=== PATIENT | female | born 1935 | race Caucasian/White ===

== ENCOUNTER 2017-07-25 05:16 | Inpatient (IN) | payer MEDICARE, MEDICAID ==
[2017-07-25] VITALS (24 sets, daily range): BP systolic 78–124; BP diastolic 35–62
[~2017-07-25] VITALS: Ht 157.5 cm; Wt 49.9 kg
--- NOTE | 2017-07-25 05:25 | NUR ---
CALLED INTO ER, ARRIVED TO ROOM 1A TO FIND PT IN RESPIRATORY DISTRESS. PT PLACED ON BIPAP AT THIS TIME PER MD ORDER WITH THE FOLLOWING SETTINGS GIVEN BIPAP 12/6, RATE 12, 100% FIO2. ABG WAS DONE WHILE ON BIPAP PER MD ORDER. WILL CONTINUE TO MONITOR.
--- NOTE | 2017-07-25 05:25 | NUR ---
Pt is received nonverbal as darci in FROM [facility] with severe shortness of breath with 02 sat on field 78%, 83% on NRB. Her care continue.
[2017-07-25] MEDS ORDERED: IV NORMAL SALINE 1000 ML BAG IV ONE ×2 (05:30→06:15)
--- NOTE | 2017-07-25 05:30 | NUR ---
Pt is place on the BiPAP as she is a full code with 02 [facility] [phone]
[2017-07-25 05:37] LABS: ABG BASE EXCESS -0.9 mmol/L; ABG HCO3 23.2 mmol/L; ABG PCO2 36.9 mmHg (35.0-45.0); ABG PH 7.416 (7.350-7.450); ABG SITE RIGHT RADIAL; ABG TOTAL HEMOGLOBIN 16.2 G/dL (12.0-16.0); COHb 1.1 % (0.5-1.5); MetHb 0.4 % (0.0-1.5)
--- NOTE | 2017-07-25 05:45 | NUR ---
Pt is started on Sepsis workup as Antibiotic therapy is started after Blood Cultures, Urine and lab work done as ordeered. Her care contiinue.
[2017-07-25] MEDS ORDERED: TRAM50TA2 PO (05:55)
[2017-07-25] MEDS ORDERED: ATOR40TA PO (05:55)
[2017-07-25] MEDS ORDERED: AMLO5TAB2 PO (05:55)
[2017-07-25] MEDS ORDERED: ATOR10TA PO (05:55)
[2017-07-25] MEDS ORDERED: ASPI81TA31 PO (05:55)
[2017-07-25] MEDS ORDERED: FAMO-132 PO (05:55)
--- NOTE | 2017-07-25 06:00 | NUR ---
Pt remain nonverbal with BiPAP therapy in progress as mosqueda cath in place as an open area to coccyx and left heels. Her care continue.
[2017-07-25 06:02] LABS: BASOPHILS # (AUTO) 0.1 K/uL (0.0-8.0); BASOPHILS % (AUTO) 0.5 % (0.0-2.0); HEMATOCRIT 50.6 % (37-47); HEMOGLOBIN 15.9 G/DL (12.0-16.0); LYMPHOCYTES # (AUTO) 0.9 K/UL (0.8-4.8); LYMPHOCYTES % (AUTO) 5.8 % (20.5-51.5); MEAN CORPUSCULAR HEMOGLOBIN 27.9 UUG (27.0-31.0); MEAN CORPUSCULAR HGB CONC 31 g/dL (32.0-37.0); MEAN CORPUSCULAR VOLUME 88.9 FL (81.0-99.0); MONOCYTES # (AUTO) 0.4 K/UL (0.1-1.30); MONOCYTES % (AUTO) 2.6 % (0.0-11.0); NEUTROPHILS # (AUTO) 13.4 K/UL (1.8-8.9); NEUTROPHILS % (AUTO) 91.1 % (38.5-71.5); PLATELET COUNT (AUTO) 119 K/UL (150-450); WHITE BLOOD COUNT (AUTO) 14.8 K/UL (4.0-11.2)
[2017-07-25] MEDS ORDERED: LEVOFLOXACIN 750 MG/D5W 150 ML PIGGYBACK IV ONE (06:15)
[2017-07-25] MEDS ORDERED: PIPERACILLIN SODIUM/TAZOBACTAM 3.375 G in IV DEXTROSE 5% 50 ML IV ONE (06:15)
[2017-07-25] MEDS ORDERED: VANCOMYCIN IV 1,000 MG in IV DEXTROSE 5% 250 ML IV ONE (06:15)
[2017-07-25 06:24] LABS: *BILIRUBIN,URIN NEGATIVE (NEGATIVE); *BLOOD, URINE 2+ (NEGATIVE); *KETONES,URINE NEGATIVE (NEGATIVE); *PROTEIN,URINE 2+ (NEGATIVE); LEUKOCYTE ESTERASE ,URINE 1+ (NEGATIVE); NITRITE, URINE NEGATIVE (NEGATIVE); PH,URINE 7.5 (5.0-8.0); UGLUCOSE NEGATIVE (NEGATIVE)
[2017-07-25] MEDS ORDERED: ACETAMINOPHEN 650 MG SUPP.RECT RC ONE ×2 (06:27→06:30)
--- NOTE | 2017-07-25 06:30 | NUR ---
Pt remain full code as BiPAP therapy in progress as IVF and Antibiotic therapy in progress. Her care continue.
[2017-07-25 06:37] LABS: *CLARITY,URINE CLOUDY (CLEAR)
--- NOTE | 2017-07-25 06:37 | NUR ---
TWO SETS OF BLOOD CULTURE CONFIRMED BY LABORATORY.
[2017-07-25 06:38] LABS: *COLOR,URINE YELLOW (YELLOW)
[2017-07-25 06:40] LABS: BACTERIA,URINE MANY /HPF (NONE SEEN); SQUAMOUS EPITHELIAL CELL,UR MANY /HPF (NONE SEEN)
[2017-07-25] MEDS ORDERED: PIPERACILLIN SODIUM/TAZO 3.375 GM VIAL ONE (06:40)
[2017-07-25] MEDS ORDERED: IOHEXOL 350 100 ML INFUS..BTL ONE (06:43)
[2017-07-25] MEDS ORDERED: IV NORMAL SALINE 250 ML IV ONE (06:43)
--- NOTE | 2017-07-25 07:05 | NUR ---
Pt remain nonverbal with BiPAP therapy in progress as report is given to the AM nurse. Pt care continue.
[2017-07-25] MEDS ORDERED: LEVOFLOXACIN 750MG/D5W 150 ML IV ONE (07:06)
--- NOTE | 2017-07-25 07:34 | NUR ---
Pt intubated by with myself, Marilee RN, Renetta RN, Roscoe PITCH WORKER and Dru CHAMORROP at bedside.
[2017-07-25] MEDS ORDERED: PROPOFOL 100 ML IV ONE (07:35)
[2017-07-25] MEDS ORDERED: SUCCINYLCHOLINE CHLORIDE 200 MG/10 ML VIAL IV ONE ×2 (07:45→14:53)
[2017-07-25] MEDS ORDERED: ETOMIDATE 20 MG/10 ML VIAL IV ONE ×2 (07:45→14:53)
--- NOTE | 2017-07-25 07:45 | NUR ---
Succinylcholine 100mg remaining in vial wasted per protocol and witnessed by Renetta ARMANDO.
--- NOTE | 2017-07-25 08:15 | NUR ---
Pt trans to CCU with ACLS guidelines in place by myself, primary nurse Marilee and Dru TURNER.
--- NOTE | 2017-07-25 08:30 | NUR ---
PT INTUBATED WITH ET TUBE SIZE 7.0 TAPED AT APPROXIMATELY 22 CM AT LIP. PLACED ON INITIAL SETTINGS OF AC 14 ,VT 450 PEEP [address] FIO2 50%. DR. MICHELE ORDERED AC 20 VT 500 AND FIO2 100% WITH NO PEEP. ET TUBE WAS PLACED TO 20CM AT LIP ORDERED BY DR. MICHELE. TRANSPORTED TO CCU ROOM 1 WITHOUT INCIDENT.
[2017-07-25 08:35] LABS: ALANINE AMINOTRANSFERASE 38 U/L (14-59); ALKALINE PHOSPHATASE 62 U/L (50-136); ASPARTATE AMINOTRANSFERASE 27 U/L (15-37); BILIRUBIN,DIRECT 0.2 mg/dL (0.0-0.2); BILIRUBIN,TOTAL 0.6 mg/dL (0.2-1.0); CARBON DIOXIDE 23 mmol/L (21-32); CREATININE 1.5 mg/dL (0.6-1.3); GLUCOSE 276 mg/dL (74-106); POTASSIUM 3.9 mmol/L (3.5-5.1); UREA NITROGEN, BLOOD 57 mg/dL (7-18)
[2017-07-25 08:40] LABS: CHLORIDE 141 mmol/L (98-107)
[2017-07-25 09:00] LABS: ABG BASE EXCESS -3.1 mmol/L; ABG HCO3 20.1 mmol/L; ABG PCO2 30.9 mmHg (35.0-45.0); ABG PH 7.432 (7.350-7.450); ABG SITE RIGHT BRACHIAL; COHb 0.9 % (0.5-1.5); MetHb 0.4 % (0.0-1.5); O2Hb 96.4 % (94.0-97.0); VENT MODE VENT - A/C; VT, ABG 500 mL
--- NOTE | 2017-07-25 09:00 | NUR ---
RECEIVED PT ON CONTINUOUS VENT AC 20 VT 500 FIO2 100% . ETT 7.0 SECURED AT 20 CM LIP LINE VIA ANCHOR FAST. AMBU BAG AT BEDSIDE.BS EQUAL BILAT. SUCTION SMALL AMOUNT THICK WHITE /BLOODY SECRETIONS. ABG DRAWN AND RESULTS GIVEN TO RN. VENT CHECKED, ALARMS WORKING WELL AND AUDIBLE. NO DISTRESS NOTED AT THIS TIME. WILL CONTINUE TO MONITOR.
[2017-07-25 09:01] LABS: THYROID STIMULATING HORMONE 1.071 mIU/mL (0.358-3.740)
[2017-07-25] MEDS: PROPOFOL 100 ML IV PRN (09:07)
[2017-07-25] MEDS ORDERED: VANCOMYCIN IV 1 G in PREMIXED 0 EACH IV ONE (11:00)
[2017-07-25] MEDS ORDERED: ASPIRIN 81 MG TAB.CHEW GT SCH (12:45)
--- NOTE | 2017-07-25 13:23 | NUR ---
Dr. Goins pulmonary services in the unit to examine patient; full report given ventilator mode changes received and implemented by RT Arreaga who is present in the unit. changes as follow: A/C 20, TV400, Peep 5. and FIO2 to be titrated to keep Saturation above or equal to 94%.
--- NOTE | 2017-07-25 13:27 | NUR ---
At this time also picc line Emergency consent signed by Dr. Goins and Dr. Hastings. PICC line services called and informed of the need for PICC.
[2017-07-25] MEDS ORDERED: FAMOTIDINE. 20 MG/2 ML VIAL IV SCH (13:30)
[2017-07-25] MEDS ORDERED: HEPARIN SODIUM,PORCINE 10,000 UNITS/10 ML VIAL INJ SCH (13:30)
--- NOTE | 2017-07-25 13:51 | NUR ---
Clinical Pharmacy Note: Vancomycin Pharmacy to Dose Subjective; To start vanco in this 82 y/o male for sepsis (waiting for MD note). Objective: height: 62'' weight: 100 lb BUN 57 Scr 1.5 wbc 14.8 temp 100 Assessment/Plan Due to advanced age & elevated srcr, will start dosing by fall off level . Will give a 1st dose of vanco 1000mg IVPB x1 today at 1030. Pharmacist shall check srcr in am & decide when to order next random level for further dosing. Will continue to monitor.
--- NOTE | 2017-07-25 13:56 | NUR ---
Echocardiogram in progress.
--- NOTE | 2017-07-25 14:00 | NUR ---
PICC line in progress.
--- NOTE | 2017-07-25 14:10 | NUR ---
Dr. Gibson notified of pt's sinus tachycardia in the mid-120's and higher 120's.
--- NOTE | 2017-07-25 14:14 | NUR ---
WOUND CARE CONSULT: PT PRESENTS WITH STAGE 3 ULCERS TO SACRUM AND RT HEEL, PRESENT ON ADMISSION. RECOMMENDATIONS MADE FOR SKIN PROTECTION AND WOUND CARE. DISCUSSED WITH NURSING STAFF. PT ON FIRST STEP MATTRESS. ALL SKIN PROTECTION MEASURES IN PLACE. WILL SEE PRN. RECOMMEND SURGICAL CONSULT. MD IN AGREEMENT WITH PLAN OF CARE. Addendum: 07/25/17 at 1418 by FLORA BENAVIDES RN Amended: Links added.
--- NOTE | 2017-07-25 14:26 | NUR ---
Picc line placed in RUE 3 lumen.
--- NOTE | 2017-07-25 14:59 | NUR ---
NG tube placed at this time KUB for placement ordered as well. Addendum: 07/25/17 at 1502 by BOB ROSAS RN pharmacy called to rescheduled meds.
[2017-07-25 17:07] LABS: ABG BASE EXCESS -0.8 mmol/L; ABG HCO3 22.8 mmol/L; ABG PCO2 34.6 mmHg (35.0-45.0); ABG PH 7.437 (7.350-7.450); ABG PO2 93.3 mmHg (75.0-100.0); ABG SITE LEFT RADIAL; ABG TOTAL HEMOGLOBIN 13.5 G/dL (12.0-16.0); COHb 0.7 % (0.5-1.5); MetHb 0.6 % (0.0-1.5); O2Hb 96.1 % (94.0-97.0); VENT MODE VENT - A/C; VT, ABG 400 mL
--- NOTE | 2017-07-25 17:33 | NUR ---
2nd call to Radiology department for results of KUB. Awaiting results.
--- NOTE | 2017-07-25 17:45 | NUR ---
NG tube advanced 3 cm's as recommended.
[2017-07-25] MEDS: ASPIRIN 81 MG TAB.CHEW GT SCH (17:59)
[2017-07-25] MEDS: FAMOTIDINE. 20 MG/2 ML VIAL IV SCH (17:59)
[2017-07-25] MEDS ORDERED: MORPHINE SULFATE 2 MG/1 ML DISP.SYRIN IV PRN (18:30)
[2017-07-25 18:34] LABS: *CREATININE,URINE 110.8 mg/dL (30-125); *URINE TOTAL PROTEIN RANDOM 133.7 mg/dL (<150/24HR)
[2017-07-25 18:40] LABS: *BILIRUBIN,URIN NEGATIVE (NEGATIVE); *BLOOD, URINE NEGATIVE (NEGATIVE); *CLARITY,URINE CLOUDY (CLEAR); *COLOR,URINE YELLOW (YELLOW); *KETONES,URINE NEGATIVE (NEGATIVE); *UROBILINOGEN,URINE 0.2 E.U./dl (NORMAL); LEUKOCYTE ESTERASE ,URINE TRACE (NEGATIVE); NITRITE, URINE NEGATIVE (NEGATIVE); PH,URINE >=9.0 (5.0-8.0); UGLUCOSE NEGATIVE (NEGATIVE)
[2017-07-25 18:57] LABS: *PROTEIN,URINE 2+ (NEGATIVE)
[2017-07-25 19:01] LABS: BACTERIA,URINE MODERATE /HPF (NONE SEEN); SQUAMOUS EPITHELIAL CELL,UR MODERATE /HPF (NONE SEEN)
[2017-07-25 19:02] LABS: CALCIUM PHOSPHATE CRYSTALS,UR MANY /HPF (NONE SEEN); MUCUS,URINE MANY /LPF (0-FEW)
--- NOTE | 2017-07-25 19:30 | NUR ---
Report received. Patient orally intubated and to mechanical ventilator. O2 sat above 95% on current vent settings. Tachycardic. On continuous Diprivan drip at 15 mcg/kg/min. Grimaces to pain but doesn't follow any commands. Addendum: 07/26/17 at 0043 by ELISEO DAIGLE RN Amended: Links added.
--- NOTE | 2017-07-25 19:42 | NUR ---
Pt rec'd on Orellana settings AC 20, VT 5\400, FIO2-50% and PEEP+5. No resp. distress noted. 7.0 ETT is patent and secure at approx. 20 cm now at the left side of mouth. BVM is at bedside. Pt to be monitored throughout the shift and PRN SX. Orellana alarm parameters have been checked and remain audiblle. Oral care done. Addendum: 07/25/17 at 1950 by ARMANDO WINN RT Clarification- VT is 400.
--- NOTE | 2017-07-25 19:45 | NUR ---
Dr. Gibson notified of patient's VS and abnormal labs. Orders received. Addendum: 07/26/17 at 0045 by ELISEO DAIGLE RN Amended: Links added.
[2017-07-25] MEDS: PIPERACILLIN/TAZOBACTAM/D5W 2.25 G in PREMIXED 1 EACH IV SCH (20:03)
[2017-07-25] MEDS: IV D5W 1000ML 1,000 ML IV PRN (20:46)
[2017-07-25] MEDS: Z GUARD REMEDY PASTE 57 GM TUBE TOP SCH (20:46)
[2017-07-25] MEDS: HEPARIN SODIUM,PORCINE 5,000 UNITS/ML VIAL SQ SCH (20:48)
[2017-07-25] MEDS ORDERED: PIPERACILLIN/TAZOBACTAM/D5W 3.375 G in PREMIXED 1 EACH IV SCH (22:00)
[2017-07-25] MEDS: PHENYLEPHRINE IV 80 MG in IV DEXTROSE 5% 250 ML IV PRN (22:24)
--- NOTE | 2017-07-25 22:24 | NUR ---
Neosynephrine drip started for BP support. See IV spread sheet for dosages and rates. Addendum: 07/26/17 at 0047 by ELISEO DAIGLE RN Amended: Links added.
--- NOTE | 2017-07-25 23:00 | NUR ---
Neosynephrine drip titrated down; BPs monitored closely. Addendum: 07/26/17 at 0657 by ELISEO DAIGLE RN Amended: Links added. Addendum: 07/26/17 at 0659 by ELISEO DAIGLE RN Amended: Links added. Addendum: 07/26/17 at 0702 by ELISEO DAIGLE RN Amended: Links added.
[2017-07-26] VITALS (73 sets, daily range): BP systolic 88–139; BP diastolic 36–82
[2017-07-26] MEDS: PIPERACILLIN/TAZOBACTAM/D5W 2.25 G in PREMIXED 1 EACH IV SCH ×4 (00:51→17:22)
[2017-07-26] MEDS: PROPOFOL 100 ML IV PRN (04:58)
[2017-07-26 05:20] LABS: ALANINE AMINOTRANSFERASE 28 U/L (14-59); ALKALINE PHOSPHATASE 62 U/L (50-136); ASPARTATE AMINOTRANSFERASE 32 U/L (15-37); BILIRUBIN,TOTAL 0.7 mg/dL (0.2-1.0); CARBON DIOXIDE 26 mmol/L (21-32); CHOLESTEROL 63 mg/dL (<200); CREATININE 1.4 mg/dL (0.6-1.3); GLUCOSE 126 mg/dL (74-106); HDL CHOLESTEROL 19 mg/dL (40-60); MAGNESIUM 2.2 mg/dL (1.8-2.4); PHOSPHOROUS 2.3 mg/dL (2.5-4.9); TOTAL PROTEIN, SERUM 5.9 g/dL (6.4-8.2); TRIGLYCERIDES 68 MG/DL (30-150); UREA NITROGEN, BLOOD 48 mg/dL (7-18)
[2017-07-26 05:26] LABS: CHLORIDE 135 mmol/L (98-107)
--- NOTE | 2017-07-26 05:30 | NUR ---
Tachypneic and desaturating after bath. Diprivan drip titrated up. Monitored closely. Addendum: 07/26/17 at 0659 by ELISEO DAIGLE RN Amended: Links added. Addendum: 07/26/17 at 0702 by ELISEO DAIGLE RN Amended: Links added.
[2017-07-26 05:36] LABS: BASOPHILS # (AUTO) 0.1 K/uL (0.0-8.0); BASOPHILS % (AUTO) 0.5 % (0.0-2.0); EOSINOPHILS % (AUTO) 0.1 % (0.0-7.0); HEMATOCRIT 38.8 % (37-47); HEMOGLOBIN 12.2 G/DL (12.0-16.0); LYMPHOCYTES # (AUTO) 0.5 K/UL (0.8-4.8); LYMPHOCYTES % (AUTO) 4.1 % (20.5-51.5); MEAN CORPUSCULAR HEMOGLOBIN 27.8 UUG (27.0-31.0); MEAN CORPUSCULAR HGB CONC 32 g/dL (32.0-37.0); MEAN CORPUSCULAR VOLUME 88.1 FL (81.0-99.0); MONOCYTES % (AUTO) 0.1 % (0.0-11.0); NEUTROPHILS # (AUTO) 12.1 K/UL (1.8-8.9); NEUTROPHILS % (AUTO) 95.2 % (38.5-71.5); PLATELET COUNT (AUTO) 76 K/UL (150-450); WHITE BLOOD COUNT (AUTO) 12.7 K/UL (4.0-11.2)
[2017-07-26 05:57] LABS: CREATINE KINASE, TOTAL 85 U/L (26-192)
[2017-07-26 06:00] LABS: BAND % (MANUAL) 58 % (0-10); LYMPHOCYTES % (MANUAL) 11 % (20-40); MONOCYTES % (MANUAL) 1 % (2-10); NEUTROPHILS % (MANUAL) 30 % (42-75)
--- NOTE | 2017-07-26 06:01 | NUR ---
Pt remains on Orellana with no changes made to the ventilator settings. 7.0 ETT remains patent and secure at approx. 20cm now at the left lip. No resp. distress noted throughout the shift. BVM is at bedside. Orellana alarm parameters have been checked and remain audible at this time.
--- NOTE | 2017-07-26 07:00 | NUR ---
Remains on Neosynephrine drip for BP support. Diprivan drip at 25 mcg/kg/min for adequate sedation. Sat above 94%. Addendum: 07/26/17 at 0702 by ELISEO DAIGLE RN Amended: Links added.
--- NOTE | 2017-07-26 07:38 | NUR ---
RECEIVED PT ON TOLBERT VENT WITH VENT SETTINGS OF AC 20 VT 400, PEEP +5, FIO2 50% . PT IS ORALLY INTUBATED WITH 7.0 ETT APPROXIMATELY 20CM LIP LINE VIA ANCHOR FAST. VENT CHECK DONE. ALARMS ARE ON AND AUDIBLE. SUCTIONED SMALL AMOUNT OF THICK, YELLOW SECRETIONS. HME CHANGED. ORAL CARE DONE. NO S/S OF RESPIRATORY DISTRESS NOTED. AMBU BAG IS AT BEDSIDE. WILL CONTINUE TO MONITOR.
[2017-07-26] MEDS: ASPIRIN 81 MG TAB.CHEW GT SCH (08:08)
[2017-07-26] MEDS: FAMOTIDINE. 20 MG/2 ML VIAL IV SCH (08:09)
[2017-07-26] MEDS: Z GUARD REMEDY PASTE 57 GM TUBE TOP SCH ×2 (08:09→20:32)
[2017-07-26] MEDS: HEPARIN SODIUM,PORCINE 5,000 UNITS/ML VIAL SQ SCH ×2 (08:13→20:33)
[2017-07-26 09:20] LABS: ABG BASE EXCESS -1.5 mmol/L; ABG HCO3 21.9 mmol/L; ABG PCO2 33.4 mmHg (35.0-45.0); ABG PH 7.434 (7.350-7.450); ABG PO2 86.9 mmHg (75.0-100.0); ABG SITE LEFT BRACHIAL; ABG TOTAL HEMOGLOBIN 15.3 G/dL (12.0-16.0); COHb 1.2 % (0.5-1.5); MetHb 0.6 % (0.0-1.5); O2Hb 95.6 % (94.0-97.0); VENT MODE VENT - A/C; VT, ABG 400 mL
--- NOTE | 2017-07-26 11:00 | NUR ---
US tech here to see pt for US kidneys.
[2017-07-26] MEDS: IV D5W 1000ML 1,000 ML IV PRN (11:35)
[2017-07-26] MEDS: POTASSIUM PHOSPHATE MM 5 MMOL in IV DEXTROSE 5% 100 ML IV SCH ×2 (12:04→14:20)
--- NOTE | 2017-07-26 12:04 | NUR ---
Dr. Goins here to see pt. Full report given. New orders received.
--- NOTE | 2017-07-26 17:12 | NUR ---
PHARMACY CLINICAL NOTES ( VANCOMYCIN DOSING) S: 82 YO female ; DX: sepsis, uti per UA and possible aspiration PNA. On Vancomcyin and Zosyn O: BUN/SCR 48/1.4; WBC 12.7; TEMP 99.1, RR 119 A/P: Since pt's WBC still high and she is febrile. ordered another dose of Vancomycin 1gm x 1 and ordered a level for tomorrow AM to follow up. RX will continue to monitor renal fxn and adjust the dose accordingly.
[2017-07-26] MEDS ORDERED: VANCOMYCIN IV 1 G in PREMIXED 0 EACH IV ONE (17:15)
--- NOTE | 2017-07-26 18:49 | NUR ---
End of shift: Pt resting in bed with ETT 7.0, 20cm at lip line with continuous ventilation settings as follows: AC-20, TV-400ml, 50% FiO2, and PEEP-5. school lunch monitor and ventilation alarms working properly wnl. Fall precautions and safety measures maintained. IVF and vasopressors infusing as ordered. Cardenas catheter intact and draining. NGT right nares c/d/i and clamped. Nad noted.
[2017-07-26] MEDS: PHENYLEPHRINE IV 80 MG in IV DEXTROSE 5% 250 ML IV PRN (18:56)
--- NOTE | 2017-07-26 19:30 | NUR ---
Report received. Patient with oral ETT to vent with same settings. NAD noted. On Diprivan and Neosynephrine drips via NILS PICC line. See IV spread sheet for rates and dosages. Assessment done. Addendum: 07/27/17 at 0216 by ELISEO DAIGLE RN Amended: Links added.
[2017-07-27] VITALS (87 sets, daily range): BP systolic 76–145; BP diastolic 38–81
--- NOTE | 2017-07-27 00:24 | NUR ---
PT ON CONT TOLBERT VENT WITH 7.0 ET/TUBE IN PLACE , 20CM LIP[ LINE CUFF PRESSURE 24 CM, ANCHOR FAST IN PLACE AND SECURED, ADJUSTED BACK TO CENTER, SUCTION MOUTH WITH ORAL CARE DONE, GOOD COUGH EFFORT, VERY LIGHT PALE YELL TINGE SECRETIONS, CHANGE HME, ALL ALARMS OK, AMBU BAG AT BEDSIDE, NO VENT CHANGES MADE AT THIS TIME, PT STABLE, WITH NO SIGNS OF RESP. DISTRESS, VENT SETTINGS, A/C 20, VT 400ML, PEEP5, 50% . Rosa Isela CHAMORROP Addendum: 07/27/17 at 0028 by GEOVANY MCHUGH RT Amended: Links added.
[2017-07-27] MEDS: PIPERACILLIN/TAZOBACTAM/D5W 2.25 G in PREMIXED 1 EACH IV SCH ×5 (00:29→23:59)
--- NOTE | 2017-07-27 00:30 | NUR ---
Neosynephrine drip dc'd; BPs monitored closely.
--- NOTE | 2017-07-27 04:30 | NUR ---
Neosynephrine drip restarted at 30 mcg/min to keep BP above 90.
[2017-07-27] MEDS: PROPOFOL 100 ML IV PRN ×2 (05:50→17:48)
[2017-07-27] MEDS: IV D5W 1000ML 1,000 ML IV PRN (05:56)
[2017-07-27 06:27] LABS: ALANINE AMINOTRANSFERASE 26 U/L (14-59); ALKALINE PHOSPHATASE 67 U/L (50-136); ASPARTATE AMINOTRANSFERASE 45 U/L (15-37); BILIRUBIN,TOTAL 0.6 mg/dL (0.2-1.0); CARBON DIOXIDE 25 mmol/L (21-32); CHLORIDE 125 mmol/L (98-107); CREATININE 1.7 mg/dL (0.6-1.3); GLUCOSE 115 mg/dL (74-106); MAGNESIUM 2.2 mg/dL (1.8-2.4); TOTAL PROTEIN, SERUM 5.2 g/dL (6.4-8.2); UREA NITROGEN, BLOOD 48 mg/dL (7-18)
--- NOTE | 2017-07-27 06:30 | NUR ---
No neuro changes. Diprivan drip remains at 25 mcg/kg/min. Neosynephrine drip at 40 mcg/min.
[2017-07-27 06:35] LABS: HEMOGLOBIN 10.5 g/dL (10.9-14.3); MONOCYTES # (AUTO) 0.1 K/uL (2.0-10.0)
[2017-07-27 06:39] LABS: POTASSIUM 2.5 mmol/L (3.5-5.1)
[2017-07-27 06:44] LABS: BASOPHILS % (AUTO) 0.2 % (0.0-2.0); EOSINOPHILS % (AUTO) 0.4 % (0.0-7.0); HEMATOCRIT 32.8 % (31.2-41.9); LYMPHOCYTES # (AUTO) 0.8 K/uL (20.0-40.0); LYMPHOCYTES % (AUTO) 7.8 % (20.5-51.5); MEAN CORPUSCULAR HGB CONC 32 g/dL (32.3-35.6); MEAN CORPUSCULAR VOLUME 87.5 fL (75.5-95.3); MONOCYTES % (AUTO) 0.8 % (0.0-11.0); NEUTROPHILS # (AUTO) 9.8 K/uL (1.8-8.9); NEUTROPHILS % (AUTO) 90.8 % (38.5-71.5); PLATELET COUNT (AUTO) 60 K/uL (179-408); RED BLOOD CELL COUNT(AUTO) 3.75 MIL/uL (3.63-4.92); WHITE BLOOD COUNT (AUTO) 10.8 K/uL (3.8-11.8)
[2017-07-27] MEDS ORDERED: POTASSIUM CHLORIDE 50 ML IV SCH ×3 (07:00→12:00)
--- NOTE | 2017-07-27 07:00 | NUR ---
PT WAS RECEIVED ON TOLBERT VENTS #005 WITH SETTINGS OF AC 20, VT 400, PEEP +5, FIO2 50%. PT ET-TUBE SECURED AND INTACT WITH ANCHOR FAST. PT CUFF CHECK WITH MANUAL WRITER. PT ET-T 7.0 AT 20CM. PT ORAL CARE DONE HME WAS CHANGED. PT WAS ORAL SUCTION. PT AT THIS TIME IS TOLERATING VENT WELL. PT VENT ALARMS ON AND AUDIBLE. PT AMBU BAG AT BED SIDE. WILL CONTINUE TO MONITOR PT.
[2017-07-27] MEDS: FAMOTIDINE. 20 MG/2 ML VIAL IV SCH (08:34)
[2017-07-27] MEDS: ASPIRIN 81 MG TAB.CHEW GT SCH (08:34)
[2017-07-27] MEDS: HEPARIN SODIUM,PORCINE 5,000 UNITS/ML VIAL SQ SCH (08:35)
--- NOTE | 2017-07-27 08:50 | NUR ---
albumin started for low albumin Addendum: 07/27/17 at 2011 by BEAU GUZMAN RN Amended: Paula added. Addendum: 07/27/17 at 2013 by BEAU GUZMAN RN Amended: Paula added.
[2017-07-27] MEDS: ALBUMIN HUMAN 25% 25 GM in PREMIXED 1 EACH IV SCH ×4 (08:52→23:16)
[2017-07-27] MEDS: Z GUARD REMEDY PASTE 57 GM TUBE TOP SCH ×2 (09:07→21:00)
[2017-07-27] MEDS: POTASSIUM CHLORIDE 50 ML IV SCH ×3 (09:59→12:22)
--- NOTE | 2017-07-27 10:00 | NUR ---
kcl replaced. total 60meq IV Addendum: 07/27/17 at 2014 by BEAU GUZMAN RN Amended: Links added.
[2017-07-27 10:08] LABS: ABG BASE EXCESS -2.5 mmol/L; ABG PCO2 31.9 mmHg (35.0-45.0); ABG PH 7.437 (7.350-7.450); ABG PO2 103.8 mmHg (75.0-100.0); ABG SITE LEFT RADIAL; ABG TOTAL HEMOGLOBIN 10.4 G/dL (12.0-16.0); COHb 0.2 % (0.5-1.5); MetHb 0.5 % (0.0-1.5); O2Hb 97.3 % (94.0-97.0); VENT MODE VENT - A/C; VT, ABG 400 mL
[2017-07-27] MEDS ORDERED: VANCOMYCIN IV 1 G in PREMIXED 0 EACH IV SCH (10:30)
--- NOTE | 2017-07-27 11:24 | NUR ---
PHARMACY CLINICAL NOTES ( VANCOMYCIN DOSING) S: 82 YO female ; DX: sepsis, uti per UA and possible aspiration PNA. On Vancomcyin and Zosyn O: BUN/SCR 48/1.7; WBC 10.8; TEMP 97.5 Vancomycin random on am labs 21.7 A/P: Will continue dose by level due to advanced age and decreased renal function. No Vancomycin will be given today(random over 20). Vancomycin random is on order for tomorrow am for further dosing. Will follow daily.
[2017-07-27 11:42] LABS: BAND % (MANUAL) 3 % (0-10); LYMPHOCYTES % (MANUAL) 5 % (20-40); MONOCYTES % (MANUAL) 2 % (2-10); NEUTROPHILS % (MANUAL) 90 % (42-75)
--- NOTE | 2017-07-27 12:00 | NUR ---
seen by dr keys orders received Addendum: 07/27/17 at 2009 by BEAU GUZMAN RN Amended: Paula added. Addendum: 07/27/17 at 2011 by BEAU GUZMAN RN Amended: Paula added. Addendum: 07/27/17 at 2013 by BEAU GUZMAN RN Amended: Links added.
[2017-07-27 12:09] LABS: A/G RATIO 0.8 (0.7-1.7); ALBUMIN 2.3 g/dL (2.9-4.4); ALPHA-1-GLOBULIN 0.3 g/dL (0.0-0.4); ALPHA-2-GLOBULIN 0.8 g/dL (0.4-1.0); BETA GLOBULIN 0.6 g/dL (0.7-1.3); GAMMA GLOBULIN 1.1 g/dL (0.4-1.8); GLOBULIN, TOTAL 2.9 g/dL (2.2-3.9); M-SPIKE Not Observed g/dL (Not Observed)
[2017-07-27] MEDS ORDERED: ALBUMIN HUMAN 25% 100 ML ONE ×3 (12:40→23:28)
[2017-07-27] MEDS: MORPHINE SULFATE 4 MG/1 ML DISP.SYRIN IV PRN (14:27)
[2017-07-27] MEDS: IV D5W-0.45% NS +20 KCL 1,000 ML IV SCH (14:28)
--- NOTE | 2017-07-27 15:00 | NUR ---
seen by dr cage. with orders. Addendum: 07/27/17 at 2016 by BEAU GUZMAN RN Amended: Links added.
--- NOTE | 2017-07-27 16:23 | NUR ---
DR DANIEL HERE. right heel wound tissue sent for cultures Addendum: 07/27/17 at 1624 by BEAU GUZMAN RN Amended: Links added.
[2017-07-27] MEDS ORDERED: SILVER SULFADIAZINE 1% CREAM 50 GM TP SCH (17:00)
[2017-07-27] MEDS ORDERED: SODIUM HYPOCHLORITE 0.125% 473 ML BOTTLE TP SCH (17:00)
[2017-07-27] MEDS ORDERED: DEXTROSE 50% 50 ML DISP.SYRIN IV PRN (17:15)
[2017-07-27] MEDS: BLOOD SUGAR DIAGNOSTIC 1 EACH STRIP VI SCH ×2 (18:04→23:16)
[2017-07-27] MEDS: PHENYLEPHRINE IV 80 MG in IV DEXTROSE 5% 250 ML IV PRN (18:05)
[2017-07-27] MEDS: DIABETICSOURCE AC 1000ML LIQUID GT PRN (19:00)
[2017-07-27] MEDS: SILVER SULFADIAZINE 1% CREAM 50 GM TP SCH (21:00)
[2017-07-27] MEDS: SODIUM HYPOCHLORITE 0.125% 473 ML BOTTLE TP SCH (21:00)
--- NOTE | 2017-07-27 22:06 | NUR ---
RECEIVED PT ON A TOLBERT VENTILATOR WITH THE FOLLOWING SETTINGS: AC 20, VT 400, PEEP +5, 35%. PATIENT IS ORALLY INTUBATED WITH A 7.0 ET TUBE, APPROX. 20 CM LIP LINE. HME CHANGED. ORAL CARE DONE. SUCTIONED SMALL AMOUNTS OF WHITE SECRETIONS. VENT IS PLUGGED IN RED OUTLET. VENT SETTINGS ARE ON AND AUDIBLE. AMBU BAG IS BY BEDSIDE. NO SOB NOTED AT THIS TIME. WILL CONTINUE TO MONITOR.
--- NOTE | 2017-07-27 23:28 | NUR ---
NOTE TO PHARMACY: ALBUMIN CHARTED; ELSEWHERE, in eMar.
[2017-07-28] VITALS (27 sets, daily range): BP systolic 90–122; BP diastolic 40–74
[2017-07-28] MEDS: IV D5W-0.45% NS +20 KCL 1,000 ML IV SCH ×2 (01:46→12:15)
[2017-07-28 05:59] LABS: BASOPHILS % (AUTO) 0.3 % (0.0-2.0); EOSINOPHILS # (AUTO) 0.1 K/uL (0.0-0.7); EOSINOPHILS % (AUTO) 2.1 % (0.0-7.0); HEMATOCRIT 28.5 % (31.2-41.9); HEMOGLOBIN 9.3 g/dL (10.9-14.3); LYMPHOCYTES # (AUTO) 0.4 K/uL (20.0-40.0); LYMPHOCYTES % (AUTO) 9.3 % (20.5-51.5); MEAN CORPUSCULAR HEMOGLOBIN 28.3 uug (24.7-32.8); MEAN CORPUSCULAR HGB CONC 33 g/dL (32.3-35.6); MEAN CORPUSCULAR VOLUME 87.3 fL (75.5-95.3); MONOCYTES # (AUTO) 0.1 K/uL (2.0-10.0); MONOCYTES % (AUTO) 1.6 % (0.0-11.0); NEUTROPHILS # (AUTO) 3.9 K/uL (1.8-8.9); NEUTROPHILS % (AUTO) 86.7 % (38.5-71.5); RED BLOOD CELL COUNT(AUTO) 3.27 MIL/uL (3.63-4.92); WHITE BLOOD COUNT (AUTO) 4.5 K/uL (3.8-11.8)
[2017-07-28] MEDS: PIPERACILLIN/TAZOBACTAM/D5W 2.25 G in PREMIXED 1 EACH IV SCH ×4 (06:13→23:48)
[2017-07-28 06:17] LABS: PLATELET COUNT (AUTO) 43 K/uL (179-408)
[2017-07-28 06:22] LABS: ALANINE AMINOTRANSFERASE 21 U/L (14-59); ALKALINE PHOSPHATASE 66 U/L (50-136); ASPARTATE AMINOTRANSFERASE 41 U/L (15-37); BILIRUBIN,TOTAL 0.5 mg/dL (0.2-1.0); CARBON DIOXIDE 22 mmol/L (21-32); CREATININE 1.4 mg/dL (0.6-1.3); GLUCOSE 136 mg/dL (74-106); MAGNESIUM 2.2 mg/dL (1.8-2.4); PHOSPHOROUS 2.5 mg/dL (2.5-4.9); POTASSIUM 3.6 mmol/L (3.5-5.1); TOTAL PROTEIN, SERUM 5.6 g/dL (6.4-8.2); UREA NITROGEN, BLOOD 35 mg/dL (7-18)
[2017-07-28 06:31] LABS: CHLORIDE 128 mmol/L (98-107)
[2017-07-28] MEDS: BLOOD SUGAR DIAGNOSTIC 1 EACH STRIP VI SCH ×4 (07:18→23:44)
[2017-07-28] MEDS: INSULIN REGULAR, HUMAN 300 UNIT/3 ML VIAL SQ PRN ×4 (07:19→23:46)
[2017-07-28 08:47] LABS: ABG BASE EXCESS -4.3 mmol/L; ABG HCO3 19.3 mmol/L; ABG PCO2 30.1 mmHg (35.0-45.0); ABG PH 7.425 (7.350-7.450); ABG PO2 84.2 mmHg (75.0-100.0); ABG SITE LEFT RADIAL; ABG TOTAL HEMOGLOBIN 9.8 G/dL (12.0-16.0); COHb 0.4 % (0.5-1.5); MetHb 0.6 % (0.0-1.5); O2Hb 95.4 % (94.0-97.0); VENT MODE VENT - A/C; VT, ABG 400 mL
[2017-07-28] MEDS: FAMOTIDINE. 20 MG/2 ML VIAL IV SCH (09:59)
[2017-07-28] MEDS: Z GUARD REMEDY PASTE 57 GM TUBE TOP SCH ×2 (10:00→21:03)
[2017-07-28] MEDS: SILVER SULFADIAZINE 1% CREAM 50 GM TP SCH ×2 (10:01→21:04)
[2017-07-28] MEDS: SODIUM HYPOCHLORITE 0.125% 473 ML BOTTLE TP SCH ×2 (10:01→17:00)
[2017-07-28] MEDS ORDERED: VANCOMYCIN IV 1 G in PREMIXED 0 EACH IV ONE (11:00)
--- NOTE | 2017-07-28 11:43 | NUR ---
PHARMACY CLINICAL NOTES ( VANCOMYCIN DOSING) S: 82 YO female ; DX: sepsis, uti per UA and possible aspiration PNA. On Vancomcyin and Zosyn O: BUN/SCR 35/1.4; WBC 4.5; TEMP 97.8 Vancomycin random on am labs 13 A/P: Will continue dose by level due to advanced age and decreased renal function. Dosed vanco 1gm this am at 1100 based on random, ordered next random tomorrow with am labs. Will follow in am and dose as needed. Will follow
[2017-07-28] MEDS: Z GUARD REMEDY PASTE 57 GM TUBE TOP PRN (13:29)
[2017-07-28 14:38] LABS: BAND % (MANUAL) 7 % (0-10); EOSINOPHILS % (MANUAL) 1 % (0-8); LYMPHOCYTES % (MANUAL) 10 % (20-40); MONOCYTES % (MANUAL) 2 % (2-10); NEUTROPHILS % (MANUAL) 80 % (42-75)
--- NOTE | 2017-07-28 19:35 | NUR ---
Received pt on Orellana ventilator with the following settings of AC-20, Vt-400, PEEP+5, FIO2-35%, orally intubated with 7.0ETT~21cm at lip line. Pt tachypneic. Airway care done, pt responded to physical stimuli. ETT moved to the right. Resus. bag at bedside. Vent and alarms on and audible.
--- NOTE | 2017-07-28 19:43 | NUR ---
PT REPORT RECEIVED LAYING IN BED COMFORTABLY, NO S/S OF RESPIRATORY DISTRESS NOTED. NO PAIN NOTED. ALL SAFETY NEEDS ARE MET. PICC LINE INTACT/PATENT. VS WNL. Addendum: 07/28/17 at 1944 by JIGNA CANO RN RECEIVED PT ON A TOLBERT VENTILATOR WITH THE FOLLOWING SETTINGS: AC 20, VT 400, PEEP +5, 35%. PATIENT IS ORALLY INTUBATED WITH A 7.0 ET TUBE, APPROX. 20 CM LIP LINE
--- NOTE | 2017-07-28 19:46 | NUR ---
NO CHANGES NOTED, ALL SAFETY NEEDS ARE MET.
--- NOTE | 2017-07-28 20:00 | NUR ---
Remains comfortable on current vent settings. Minimal secretions with suctioning. Remains off Diprivan. Is lethargic, not following simple commands. Stable sinus rhythm and VS. Remains off vasopressor. Tube feedings well tolerated. Aspiration precautions observed; HOB up at all times. IVF infusing well via right PICC site. Pt turned/positioned q 2hr and PRN. Nursing comfort measures observed at all times. Please see CCU flowsheet for full assessment and clinical data.
[2017-07-28] MEDS: DIABETICSOURCE AC 1000ML LIQUID GT PRN (22:11)
[2017-07-28] MEDS: MORPHINE SULFATE 4 MG/1 ML DISP.SYRIN IV PRN (22:17)
[2017-07-29] VITALS (22 sets, daily range): BP systolic 91–125; BP diastolic 40–70
[2017-07-29] MEDS: IV D5W-0.45% NS +20 KCL 1,000 ML IV SCH ×2 (01:04→23:58)
[2017-07-29] MEDS: Z GUARD REMEDY PASTE 57 GM TUBE TOP PRN (03:35)
[2017-07-29 05:30] LABS: BASOPHILS % (AUTO) 0.4 % (0.0-2.0); EOSINOPHILS # (AUTO) 0.1 K/uL (0.0-0.7); EOSINOPHILS % (AUTO) 4.3 % (0.0-7.0); HEMATOCRIT 27.2 % (31.2-41.9); HEMOGLOBIN 8.9 g/dL (10.9-14.3); LYMPHOCYTES # (AUTO) 0.5 K/uL (20.0-40.0); LYMPHOCYTES % (AUTO) 18.1 % (20.5-51.5); MEAN CORPUSCULAR HEMOGLOBIN 28.6 uug (24.7-32.8); MEAN CORPUSCULAR HGB CONC 33 g/dL (32.3-35.6); MEAN CORPUSCULAR VOLUME 87.2 fL (75.5-95.3); MONOCYTES # (AUTO) 0.1 K/uL (2.0-10.0); NEUTROPHILS # (AUTO) 2.2 K/uL (1.8-8.9); NEUTROPHILS % (AUTO) 75.2 % (38.5-71.5); RED BLOOD CELL COUNT(AUTO) 3.12 MIL/uL (3.63-4.92); WHITE BLOOD COUNT (AUTO) 2.9 K/uL (3.8-11.8)
[2017-07-29] MEDS: BLOOD SUGAR DIAGNOSTIC 1 EACH STRIP VI SCH ×4 (05:41→23:54)
[2017-07-29] MEDS: PIPERACILLIN/TAZOBACTAM/D5W 2.25 G in PREMIXED 1 EACH IV SCH ×3 (05:42→18:12)
[2017-07-29 05:45] LABS: PLATELET COUNT (AUTO) 30 K/uL (179-408)
[2017-07-29 05:51] LABS: CARBON DIOXIDE 25 mmol/L (21-32); CHLORIDE 125 mmol/L (98-107); CREATININE 1.4 mg/dL (0.6-1.3); GLUCOSE 119 mg/dL (74-106); MAGNESIUM 2.1 mg/dL (1.8-2.4); PHOSPHOROUS 2.1 mg/dL (2.5-4.9); POTASSIUM 3.7 mmol/L (3.5-5.1); UREA NITROGEN, BLOOD 30 mg/dL (7-18); VANCOMYCIN,RANDOM 18.9 ug/mL (18.0-26.0)
--- NOTE | 2017-07-29 06:00 | NUR ---
Pt has been having frequent stools this shift. Kept clean and comfortable at all times. Stable night, remains off pressor. Please see CCU flowsheet for trends and clinical data.
[2017-07-29 06:24] LABS: BAND % (MANUAL) 16 % (0-10); EOSINOPHILS % (MANUAL) 5 % (0-8); LYMPHOCYTES % (MANUAL) 15 % (20-40); NEUTROPHILS % (MANUAL) 64 % (42-75)
--- NOTE | 2017-07-29 07:00 | NUR ---
PT RECEIVED ON VENT AT THIS PT VENT SETTINGS ARE AC 20, VT 400, PEEP +5 FIO2 35%. PT ET-TUBE 7.0 AT 20CM . PT AT THIS TIME IS TOLERATING VENT WELL NO DISTRESS NOTED PT ORAL CARE WAS DONE PT WAS SUCTION HME WAS CHANGED. PT VENT ALARMS ON AND AUDIBLE PT AMBU BAG AT BED SIDE. PT ABG WILL BE DONE AT 0900. WILL CONTINUE TO MONITOR PT. PT HAS NO WEANING ORDERS AT THIS TIME.
[2017-07-29] MEDS: FAMOTIDINE. 20 MG/2 ML VIAL IV SCH (08:27)
[2017-07-29] MEDS: ACETAMINOPHEN 650 MG SUPP.RECT RC PRN (08:27)
[2017-07-29] MEDS: Z GUARD REMEDY PASTE 57 GM TUBE TOP SCH ×2 (08:29→20:26)
[2017-07-29] MEDS: SILVER SULFADIAZINE 1% CREAM 50 GM TP SCH ×2 (08:29→20:27)
[2017-07-29] MEDS: SODIUM HYPOCHLORITE 0.125% 473 ML BOTTLE TP SCH ×2 (08:30→16:16)
--- NOTE | 2017-07-29 09:00 | NUR ---
Dr Goins is here to assess the pt, pt report is given
[2017-07-29 09:24] LABS: ABG BASE EXCESS -3.7 mmol/L; ABG HCO3 19.8 mmol/L; ABG PCO2 30.9 mmHg (35.0-45.0); ABG PH 7.425 (7.350-7.450); ABG PO2 92.8 mmHg (75.0-100.0); ABG SITE LEFT RADIAL; ABG TOTAL HEMOGLOBIN 10.8 G/dL (12.0-16.0); COHb 0.5 % (0.5-1.5); MetHb 0.5 % (0.0-1.5); O2Hb 96.4 % (94.0-97.0); VENT MODE VENT - A/C; VT, ABG 400 mL
[2017-07-29] MEDS: POTASSIUM PHOSPHATE MM 5 MMOL in IV DEXTROSE 5% 100 ML IV SCH ×2 (09:41→12:12)
--- NOTE | 2017-07-29 11:10 | NUR ---
PT ET-TUBE WAS CUT APPROXIMALLY 2 INCH PER MD ORDER AND WAS TAPED ON SIDE OF VENT. PT TOLERATED WELL NO DISTRESS NOTED WILL MONITOR PT AT THIS TIME.
--- NOTE | 2017-07-29 11:52 | NUR ---
PHARMACY CLINICAL NOTES ( VANCOMYCIN DOSING) S: 82 YO female ; DX: sepsis, uti per UA and possible aspiration PNA. On Vancomcyin and Zosyn O: BUN/SCR 30/1.4; WBC 2.9 ; TEMP 99.8 Vancomycin random on am labs 18.9 A/P: Will continue dose by level due to advanced age and decreased renal function. Dosed vanco 1gm this am at 1300 based on random, ordered next random tomorrow with am labs. Will follow in am and dose as needed. Will follow
[2017-07-29] MEDS ORDERED: VANCOMYCIN IV 1 G in PREMIXED 0 EACH IV ONE (13:00)
--- NOTE | 2017-07-29 13:00 | NUR ---
Dr. Gibson is here to assess the pt, pt report is given
--- NOTE | 2017-07-29 17:09 | NUR ---
Dr Lowery is here to assess the pt, report is given. Advise that there's no visual bleeding noted, nor it was noted in stool.
--- NOTE | 2017-07-29 17:10 | NUR ---
PT REMAINS ON VENT NO CHANGES MADE AT THIS TIME WILL CONTINUE TO MONITOR PT . PT TOLERATING VENT WELL.
[2017-07-29 19:08] LABS: THYROID STIMULATING HORMONE 1.758 mIU/mL (0.358-3.740)
--- NOTE | 2017-07-29 19:10 | NUR ---
RECEIVED PT ON CONTINUOUS VENT AC 20 VT 400 PEEP 5 FIO2 35%. ETT 7.0 SECURED AT 20 CM LIP LINE VIA ANCHOR FAST. NO SIGNS OF RESPIRATORY DISTRESS NOTED. BS FEW RHONCHI. SUCTION LAVAGE PRN. VENT CHECKED, ALARMS WORKING WELL AND AUDIBLE. WILL CONTINUE TO MONITOR.
--- NOTE | 2017-07-29 19:20 | NUR ---
PT IS LAYING IN BED COMFORTABLY. NO S/S OF RESPIRATORY DISTRESS NOTED. NO PAIN NOTED. ALL SAFETY NEEDS ARE MET. MELTON IS DRAINING YELLOW URINE WITH SEDIMENTS. PT IS REPOSITIONED Q2H. Addendum: 07/29/17 at 1924 by JIGNA CANO RN VENT AT THIS PT VENT SETTINGS ARE AC 20, VT 400, PEEP +5 FIO2 35%. PT ET-TUBE 7.0 AT 20CM .
--- NOTE | 2017-07-29 19:30 | NUR ---
Report received. Patient orally intubated and to mechanical ventilator with same settings : DV=520 ml, AC=20, FIO2=35% and PEEP=5 cm. NAD noted. Sat above 94%. Opens eyes and with facial grimacing to stimulation. Doesn't follow any commands. Assessment completed. Addendum: 07/30/17 at 0113 by ELISEO DAIGLE RN Amended: Links added.
--- NOTE | 2017-07-29 19:55 | NUR ---
Dr. Lowery informed of DIC panel results. No new orders.
[2017-07-30] VITALS (24 sets, daily range): BP systolic 98–142; BP diastolic 43–72
--- NOTE | 2017-07-30 | NUR ---
Afebrile. Turned and repositioned. Cleaned for a small liquid soft brown BM. Skin care provided. Addendum: 07/30/17 at 0117 by ELISEO DAIGLE RN Amended: Links added.
[2017-07-30] MEDS: PIPERACILLIN/TAZOBACTAM/D5W 2.25 G in PREMIXED 1 EACH IV SCH ×3 (00:09→11:35)
[2017-07-30 05:32] LABS: BASOPHILS % (AUTO) 0.7 % (0.0-2.0); EOSINOPHILS # (AUTO) 0.1 K/uL (0.0-0.7); HEMATOCRIT 26.1 % (31.2-41.9); HEMOGLOBIN 8.5 g/dL (10.9-14.3); LYMPHOCYTES # (AUTO) 0.4 K/uL (20.0-40.0); MEAN CORPUSCULAR HEMOGLOBIN 28.3 uug (24.7-32.8); MEAN CORPUSCULAR HGB CONC 33 g/dL (32.3-35.6); MEAN CORPUSCULAR VOLUME 86.7 fL (75.5-95.3); MONOCYTES # (AUTO) 0.1 K/uL (2.0-10.0); MONOCYTES % (AUTO) 2.5 % (0.0-11.0); NEUTROPHILS # (AUTO) 1.4 K/uL (1.8-8.9); NEUTROPHILS % (AUTO) 68.8 % (38.5-71.5); RED BLOOD CELL COUNT(AUTO) 3.02 MIL/uL (3.63-4.92)
[2017-07-30 05:58] LABS: ALKALINE PHOSPHATASE 78 U/L (50-136); ASPARTATE AMINOTRANSFERASE 32 U/L (15-37); BILIRUBIN,TOTAL 0.7 mg/dL (0.2-1.0); CARBON DIOXIDE 24 mmol/L (21-32); CHLORIDE 122 mmol/L (98-107); CREATININE 1.3 mg/dL (0.6-1.3); GLUCOSE 127 mg/dL (74-106); MAGNESIUM 2.2 mg/dL (1.8-2.4); PHOSPHOROUS 2.1 mg/dL (2.5-4.9); POTASSIUM 3.7 mmol/L (3.5-5.1); TOTAL PROTEIN, SERUM 5.2 g/dL (6.4-8.2); UREA NITROGEN, BLOOD 27 mg/dL (7-18); VANCOMYCIN,RANDOM 25.1 ug/mL (18.0-26.0)
[2017-07-30] MEDS: BLOOD SUGAR DIAGNOSTIC 1 EACH STRIP VI SCH ×3 (06:04→17:37)
[2017-07-30] MEDS: DIABETICSOURCE AC 1000ML LIQUID GT PRN (06:05)
[2017-07-30 06:10] LABS: ALANINE AMINOTRANSFERASE 19 U/L (14-59)
[2017-07-30 06:19] LABS: PLATELET COUNT (AUTO) 32 K/uL (179-408)
[2017-07-30 06:29] LABS: EOSINOPHILS % (MANUAL) 9 % (0-8); LYMPHOCYTES % (MANUAL) 27 % (20-40); MONOCYTES % (MANUAL) 2 % (2-10); NEUTROPHILS % (MANUAL) 62 % (42-75)
--- NOTE | 2017-07-30 07:02 | NUR ---
Comfortable on current vent settings. VS stable. Tolerating NGT feedings well. Eyes open but doesn't focus and follow any commands. Grimacing to pain. Addendum: 07/30/17 at 0704 by ELISEO DAIGLE RN Amended: Links added.
--- NOTE | 2017-07-30 07:06 | NUR ---
PT RECEIVED ON CMV WITH ETT SECURED AND AIRWAY PATENT. PT TOLERATING CURRENT VENT SETTINGS FINE WITH NO DISTRESS. VENT ALARMS SET AND AUDIBLE. PT APPEARS COMFORTABLE WITH NO DISTRESS.
[2017-07-30] MEDS: FAMOTIDINE 20 MG TABLET GT SCH (08:10)
[2017-07-30] MEDS: SILVER SULFADIAZINE 1% CREAM 50 GM TP SCH ×2 (08:10→20:24)
[2017-07-30] MEDS: SODIUM HYPOCHLORITE 0.125% 473 ML BOTTLE TP SCH ×2 (08:10→16:42)
[2017-07-30] MEDS: Z GUARD REMEDY PASTE 57 GM TUBE TOP SCH ×2 (08:10→20:22)
[2017-07-30 08:58] LABS: ABG BASE EXCESS -2.3 mmol/L; ABG PCO2 30.8 mmHg (35.0-45.0); ABG PH 7.452 (7.350-7.450); ABG PO2 83.3 mmHg (75.0-100.0); ABG SITE RIGHT BRACHIAL; ABG TOTAL HEMOGLOBIN 9.6 G/dL (12.0-16.0); COHb 0.6 % (0.5-1.5); MetHb 0.4 % (0.0-1.5); O2Hb 95.6 % (94.0-97.0); VENT MODE VENT - A/C; VT, ABG 400 mL
--- NOTE | 2017-07-30 10:58 | NUR ---
Dr. Goins here to see pt. Full report given. New orders received.
--- NOTE | 2017-07-30 11:16 | NUR ---
PHARMACY CLINICAL NOTES ( VANCOMYCIN DOSING) S: 82 YO female ; DX: sepsis, uti per UA and possible aspiration PNA, decube O: BUN/SCR 21/1.3; WBC 2 ; TEMP 99.1 Vancomycin random on am labs 25.1 A/P: Will continue dose by level due to advanced age and decreased renal function. since vanco random is over 20 mcg/ml, no dose shall be due today. Ordered next random tomorrow with am labs. Will follow in am and dose as needed. Will follow
[2017-07-30] MEDS: INSULIN REGULAR, HUMAN 300 UNIT/3 ML VIAL SQ PRN (11:43)
[2017-07-30] MEDS ORDERED: POTASSIUM PHOSPHATE MM 7.5 MMOL in IV DEXTROSE 5% 100 ML IV ONE (13:00)
--- NOTE | 2017-07-30 19:37 | NUR ---
Pt received on Orellana vent with current settings of AC 20, VT 400, Peep +5, FiO2 35%. Pt is orally intubated with a 7.0 ETT, secured with anchor fast at approximately 20 cm at the lip. No signs of respiratory distress noted at this time, pt appears to be tolerating vent settings well. Suctioned pt with small amount of pale-yellowish secretions. Vent alarms functioning and audible. Will continue to monitor pt throughout shift.
[2017-07-30] MEDS: CEFEPIME HCL 1 G in IV DEXTROSE 5% 50 ML IV SCH (20:22)
[2017-07-30] MEDS: IV D5W-0.45% NS +20 KCL 1,000 ML IV SCH (23:30)
[2017-07-31] VITALS (24 sets, daily range): BP systolic 108–151; BP diastolic 36–92
[2017-07-31] MEDS: BLOOD SUGAR DIAGNOSTIC 1 EACH STRIP VI SCH ×4 (00:01→17:24)
[2017-07-31 05:38] LABS: BASOPHILS % (AUTO) 0.3 % (0.0-2.0); EOSINOPHILS # (AUTO) 0.1 K/uL (0.0-0.7); HEMATOCRIT 26.5 % (31.2-41.9); HEMOGLOBIN 8.6 g/dL (10.9-14.3); LYMPHOCYTES # (AUTO) 0.4 K/uL (20.0-40.0); MEAN CORPUSCULAR HGB CONC 33 g/dL (32.3-35.6); MEAN CORPUSCULAR VOLUME 85.8 fL (75.5-95.3); MONOCYTES # (AUTO) 0.1 K/uL (2.0-10.0); MONOCYTES % (AUTO) 2.9 % (0.0-11.0); NEUTROPHILS % (AUTO) 79.8 % (38.5-71.5); RED BLOOD CELL COUNT(AUTO) 3.09 MIL/uL (3.63-4.92); WHITE BLOOD COUNT (AUTO) 2.5 K/uL (3.8-11.8)
[2017-07-31 05:52] LABS: PLATELET COUNT (AUTO) 36 K/uL (179-408)
[2017-07-31 05:56] LABS: ALANINE AMINOTRANSFERASE 24 U/L (14-59); ALKALINE PHOSPHATASE 86 U/L (50-136); ASPARTATE AMINOTRANSFERASE 30 U/L (15-37); BILIRUBIN,TOTAL 0.8 mg/dL (0.2-1.0); CARBON DIOXIDE 25 mmol/L (21-32); CHLORIDE 116 mmol/L (98-107); CREATININE 1.2 mg/dL (0.6-1.3); GLUCOSE 121 mg/dL (74-106); MAGNESIUM 2.1 mg/dL (1.8-2.4); POTASSIUM 3.3 mmol/L (3.5-5.1); TOTAL PROTEIN, SERUM 5.3 g/dL (6.4-8.2); UREA NITROGEN, BLOOD 21 mg/dL (7-18); VANCOMYCIN,RANDOM 15.4 ug/mL (18.0-26.0)
[2017-07-31] MEDS: FAMOTIDINE 20 MG TABLET GT SCH (07:51)
[2017-07-31] MEDS: Z GUARD REMEDY PASTE 57 GM TUBE TOP SCH ×2 (07:51→21:18)
[2017-07-31] MEDS: CEFEPIME HCL 1 G in IV DEXTROSE 5% 50 ML IV SCH ×2 (07:52→08:07)
[2017-07-31] MEDS: SILVER SULFADIAZINE 1% CREAM 50 GM TP SCH ×2 (07:53→21:23)
[2017-07-31] MEDS: SODIUM HYPOCHLORITE 0.125% 473 ML BOTTLE TP SCH ×2 (07:53→15:28)
--- NOTE | 2017-07-31 09:00 | NUR ---
Weaning trial started and pt placed on CPAP with settings as follows: PSV-10, 35% FiO2, and PEEP-5. ABG to be done in 1 hr.
[2017-07-31 09:40] LABS: BAND % (MANUAL) 2 % (0-10); EOSINOPHILS % (MANUAL) 8 % (0-8); LYMPHOCYTES % (MANUAL) 18 % (20-40); NEUTROPHILS % (MANUAL) 72 % (42-75)
[2017-07-31 10:04] LABS: ABG BASE EXCESS -1.8 mmol/L; ABG HCO3 21.3 mmol/L; ABG PCO2 30.1 mmHg (35.0-45.0); ABG PH 7.468 (7.350-7.450); ABG PO2 72.1 mmHg (75.0-100.0); ABG SITE RIGHT RADIAL; ABG TOTAL HEMOGLOBIN 9.3 G/dL (12.0-16.0); COHb 0.6 % (0.5-1.5); MetHb 0.4 % (0.0-1.5); VENT MODE VENT - PSUPPORT; VT, ABG 343 mL
[2017-07-31] MEDS: DIABETICSOURCE AC 1000ML LIQUID GT PRN (11:10)
[2017-07-31] MEDS: POTASSIUM PHOSPHATE MM 7.5 MMOL in IV DEXTROSE 5% 100 ML IV SCH ×2 (15:02→18:05)
[2017-07-31] MEDS ORDERED: DC PROPOFOL ONCE EXTUBATED XX PRN (15:05)
--- NOTE | 2017-07-31 15:05 | NUR ---
Pt extubated and placed on simple face mask 6L as ordered.
[2017-07-31] MEDS: IV D5W-0.45% NS +20 KCL 1,000 ML IV SCH ×2 (15:32→20:16)
--- NOTE | 2017-07-31 17:36 | NUR ---
Pt was extubated upon Dr. Goins's order. Pt is now on 6-8 lpm simple mask.
[2017-07-31] MEDS: MEROPENEM 0.5 G in IV NORMAL SALINE 50 ML IV SCH (22:00)
[2017-08-01] VITALS (23 sets, daily range): BP systolic 105–165; BP diastolic 40–75
[2017-08-01] MEDS ORDERED: MEROPENEM 500 MG VIAL IV ONE ×2 (00:12→06:24)
[2017-08-01] MEDS: BLOOD SUGAR DIAGNOSTIC 1 EACH STRIP VI SCH ×5 (01:03→23:22)
[2017-08-01] MEDS: INSULIN REGULAR, HUMAN 300 UNIT/3 ML VIAL SQ PRN (01:06)
[2017-08-01 06:18] LABS: BASOPHILS % (AUTO) 0.1 % (0.0-2.0); EOSINOPHILS # (AUTO) 0.1 K/uL (0.0-0.7); EOSINOPHILS % (AUTO) 2.4 % (0.0-7.0); HEMATOCRIT 26.2 % (37-47); HEMOGLOBIN 8.7 G/DL (12.0-16.0); LYMPHOCYTES # (AUTO) 0.6 K/UL (0.8-4.8); LYMPHOCYTES % (AUTO) 12.5 % (20.5-51.5); MEAN CORPUSCULAR HGB CONC 33 g/dL (32.0-37.0); MEAN CORPUSCULAR VOLUME 84.5 FL (81.0-99.0); MONOCYTES # (AUTO) 0.1 K/UL (0.1-1.30); MONOCYTES % (AUTO) 1.7 % (0.0-11.0); NEUTROPHILS # (AUTO) 4.1 K/UL (1.8-8.9); NEUTROPHILS % (AUTO) 83.3 % (38.5-71.5); PLATELET COUNT (AUTO) 54 K/UL (150-450); WHITE BLOOD COUNT (AUTO) 4.9 K/UL (4.0-11.2)
[2017-08-01] MEDS: MEROPENEM 0.5 G in IV NORMAL SALINE 50 ML IV SCH ×2 (06:22→19:03)
[2017-08-01 06:32] LABS: CARBON DIOXIDE 25 mmol/L (21-32); CHLORIDE 116 mmol/L (98-107); GLUCOSE 104 mg/dL (74-106); PHOSPHOROUS 2.2 mg/dL (2.5-4.9); POTASSIUM 3.4 mmol/L (3.5-5.1); UREA NITROGEN, BLOOD 18 mg/dL (7-18)
[2017-08-01 06:58] LABS: BAND % (MANUAL) 9 % (0-10); EOSINOPHILS % (MANUAL) 3 % (0-8); LYMPHOCYTES % (MANUAL) 14 % (20-40); MONOCYTES % (MANUAL) 2 % (2-10); NEUTROPHILS % (MANUAL) 72 % (42-75)
--- NOTE | 2017-08-01 07:00 | NUR ---
pt is laying in bed, all safety needs are met. Pt has labored breathing, tachypneic, shallow breathing. O2 sat is WNL. Picc line is intact/patent. Pt is on 10 L simple mask. No pain noted. No bleeding noted.
--- NOTE | 2017-08-01 07:25 | NUR ---
0600 AM DOSE MEROPENUM WAS 1GM /100 ML NS. GAVE ONLY 50 ML OF THE BAG. PT RECEIVED 0.5 GM ORDERED.
[2017-08-01] MEDS: ALBUTEROL SULFATE 2.5 MG/3 ML NEBU NEB PRN (07:59)
[2017-08-01 08:32] LABS: ABG BASE EXCESS -1.3 mmol/L; ABG HCO3 22.2 mmol/L; ABG PCO2 32.7 mmHg (35.0-45.0); ABG PH 7.449 (7.350-7.450); ABG PO2 70.9 mmHg (75.0-100.0); ABG SITE LEFT RADIAL; ABG TOTAL HEMOGLOBIN 10.3 G/dL (12.0-16.0); COHb 0.3 % (0.5-1.5); MetHb 0.3 % (0.0-1.5); O2Hb 94.1 % (94.0-97.0)
--- NOTE | 2017-08-01 09:00 | NUR ---
Dr Leslie is here to assess the pt, pt report is given. Updated on pt being tachypneic with shallow breathing. Ok per , no new orders at this time.
[2017-08-01] MEDS: Z GUARD REMEDY PASTE 57 GM TUBE TOP SCH ×2 (09:24→20:59)
[2017-08-01] MEDS: SILVER SULFADIAZINE 1% CREAM 50 GM TP SCH ×2 (09:25→21:00)
[2017-08-01] MEDS: SODIUM HYPOCHLORITE 0.125% 473 ML BOTTLE TP SCH ×2 (09:25→17:45)
[2017-08-01] MEDS: FAMOTIDINE 20 MG TABLET GT SCH (09:27)
--- NOTE | 2017-08-01 14:00 | NUR ---
DR Johnson is here to assess the pt, pt report is given. Advised on the pt being tachypneic, with shallow breathing. No new order from Dr Goins at this time.
[2017-08-01] MEDS ORDERED: POTASSIUM CHLORIDE 20 MEQ POWDER PACKET GT ONE (14:15)
[2017-08-01] MEDS ORDERED: NEUTRA PHOS PACKET GT ONE (15:30)
--- NOTE | 2017-08-01 18:00 | NUR ---
Dr Lowery is here to assess the pt, pt report is given
--- NOTE | 2017-08-01 19:00 | NUR ---
No changes noted. All safety needs are met. Pt being still tachypneic with shallow breathing, VS WNL
--- NOTE | 2017-08-01 19:30 | NUR ---
tolerating oxygen via mask at 10 liter /min . saturation 100 RR at 30 hob up and continue to monitor vital sign and levels of comfort . Addendum: 08/02/17 at 0025 by MIKEY KIRKLAND RN Amended: Links added. Addendum: 08/02/17 at 0029 by MIKEY KIRKLAND RN Amended: Links added.
[2017-08-01] MEDS: IV D5W-0.45% NS +20 KCL 1,000 ML IV SCH (20:00)
--- NOTE | 2017-08-01 20:00 | NUR ---
patient with shallow breathing and at times tachypneic as per day consumer lending manager are aware dR fischer and eyal .continue to monitor saturation at this time 98% , rr 30 to 35.
--- NOTE | 2017-08-01 22:00 | NUR ---
total care ,turned and reposition patient .elevated upper and lower extremities with pillows . heels offloaded . Addendum: 08/02/17 at 0031 by MIKEY KIRKLAND RN Amended: Links added. Addendum: 08/02/17 at 0032 by MIKEY KIRKLAND RN Amended: Links added. Addendum: 08/02/17 at 0033 by MIKEY KIRKLAND RN Amended: Links added.
--- NOTE | 2017-08-01 23:00 | NUR ---
given Tylenol suppository for temp 100.8 axillary .patient noted to have facial grimace when reposition and turned .upper and lower extremities very stiff and contracted . continue to monitor vitals and levels of comfort.
[2017-08-01] MEDS: ACETAMINOPHEN 650 MG SUPP.RECT RC PRN (23:03)
[2017-08-02] VITALS (24 sets, daily range): BP systolic 101–194; BP diastolic 46–101
--- NOTE | 2017-08-02 | NUR ---
tolerating tube feeding on diabetic source at 30 ml/hr . hob up aspiration precaution observed ,flushed with water 200 ml q6 hourly . Addendum: 08/02/17 at 0029 by MIKEY KIRKLAND RN Amended: Links added.
--- NOTE | 2017-08-02 04:00 | NUR ---
am care done ,changed soiled linens and gown skin care done and perianal care done . dressing changed to patient sacral area applied z guard to bilateral sacral area and covered with Mepilex .
[2017-08-02 05:29] LABS: BASOPHILS % (AUTO) 0.4 % (0.0-2.0); EOSINOPHILS # (AUTO) 0.1 K/uL (0.0-0.7); EOSINOPHILS % (AUTO) 2.3 % (0.0-7.0); HEMATOCRIT 26.4 % (31.2-41.9); HEMOGLOBIN 8.7 g/dL (10.9-14.3); LYMPHOCYTES # (AUTO) 0.5 K/uL (20.0-40.0); LYMPHOCYTES % (AUTO) 12.3 % (20.5-51.5); MEAN CORPUSCULAR HEMOGLOBIN 28.2 uug (24.7-32.8); MEAN CORPUSCULAR HGB CONC 33 g/dL (32.3-35.6); MEAN CORPUSCULAR VOLUME 85.2 fL (75.5-95.3); MONOCYTES # (AUTO) 0.1 K/uL (2.0-10.0); MONOCYTES % (AUTO) 2.5 % (0.0-11.0); NEUTROPHILS # (AUTO) 3.1 K/uL (1.8-8.9); NEUTROPHILS % (AUTO) 82.5 % (38.5-71.5); PLATELET COUNT (AUTO) 94 K/uL (179-408); WHITE BLOOD COUNT (AUTO) 3.8 K/uL (3.8-11.8)
[2017-08-02 05:34] LABS: ALANINE AMINOTRANSFERASE 21 U/L (14-59); ALKALINE PHOSPHATASE 76 U/L (50-136); ASPARTATE AMINOTRANSFERASE 24 U/L (15-37); BILIRUBIN,TOTAL 0.5 mg/dL (0.2-1.0); CARBON DIOXIDE 27 mmol/L (21-32); CHLORIDE 121 mmol/L (98-107); GLUCOSE 110 mg/dL (74-106); PHOSPHOROUS 2.4 mg/dL (2.5-4.9); TOTAL PROTEIN, SERUM 5.5 g/dL (6.4-8.2); UREA NITROGEN, BLOOD 17 mg/dL (7-18)
[2017-08-02] MEDS: MEROPENEM 0.5 G in IV NORMAL SALINE 50 ML IV SCH ×2 (05:44→17:50)
[2017-08-02] MEDS: BLOOD SUGAR DIAGNOSTIC 1 EACH STRIP VI SCH ×3 (05:53→17:54)
--- NOTE | 2017-08-02 06:00 | NUR ---
dr:james came and saw patient md did the dressing to patients right heel wound .
[2017-08-02 06:40] LABS: MAGNESIUM 2.3 mg/dL (1.8-2.4)
[2017-08-02] MEDS: Z GUARD REMEDY PASTE 57 GM TUBE TOP SCH ×2 (08:12→20:08)
[2017-08-02] MEDS: FAMOTIDINE 20 MG TABLET GT SCH (08:12)
[2017-08-02] MEDS: SODIUM HYPOCHLORITE 0.125% 473 ML BOTTLE TP SCH ×2 (08:17→17:39)
[2017-08-02] MEDS: SILVER SULFADIAZINE 1% CREAM 50 GM TP SCH ×2 (08:18→20:09)
--- NOTE | 2017-08-02 10:20 | NUR ---
ORALIA Garcia in the unit to examine, patient. Full report given , orders to continue with current care plan received.
[2017-08-02] MEDS: MORPHINE SULFATE 4 MG/1 ML DISP.SYRIN IV PRN (14:04)
[2017-08-02] MEDS: ACETAMINOPHEN 650 MG SUPP.RECT RC PRN (15:19)
[2017-08-02] MEDS: ALBUTEROL SULFATE 2.5 MG/3 ML NEBU NEB PRN (15:22)
[2017-08-02] MEDS ORDERED: NEUTRA PHOS PACKET GT ONE (15:30)
--- NOTE | 2017-08-02 16:00 | NUR ---
DESIZING MACHINE BACK TENDER Radha Mott. informed of Pt's current condition, sustained tachycardia in the 140's temperature of 101.4 for which she was medicated and sbp above 160's. She was also informed of continuous pulmonary toileting. Orders to continue monitor patient and if condition persist to obtain and ABG.
--- NOTE | 2017-08-02 17:00 | NUR ---
Dr. Goins in the unit to see patient, report given, see orders.
--- NOTE | 2017-08-02 17:00 | NUR ---
Eric HOWARD services in the unit to examine patient, Radha informed of pt's spike in temperature. No orders received.
--- NOTE | 2017-08-02 18:08 | NUR ---
Clinical pharmacy note-Vancomycin dosing per pharmacy S; Resume Vancomycin dosing on this patient for pneumonia O: BUN 17 scr 1.0 WBC 3.8 Temp 98.7 Assessment/Plan: Will start Vancomycin 1 gram IV every 30 hrs (first dose tonight at 1900) and draw trough by 4th dose(not ordered yet) for expected trough around 15. Will monitor daily.
[2017-08-02] MEDS: VANCOMYCIN IV 1 G in PREMIXED 0 EACH IV SCH (20:08)
[2017-08-03] VITALS (20 sets, daily range): BP systolic 106–143; BP diastolic 46–75
--- NOTE | 2017-08-03 | NUR ---
Temperature of 102.2 rectally. PRN medication given as ordered. Cooling measures applied.
[2017-08-03] MEDS: ACETAMINOPHEN 650 MG SUPP.RECT RC PRN (00:38)
[2017-08-03] MEDS: BLOOD SUGAR DIAGNOSTIC 1 EACH STRIP VI SCH ×4 (00:39→18:11)
[2017-08-03] MEDS: ALBUTEROL SULFATE 2.5 MG/3 ML NEBU NEB PRN ×2 (01:32→22:30)
[2017-08-03] MEDS: MEROPENEM 0.5 G in IV NORMAL SALINE 50 ML IV SCH ×2 (05:04→17:44)
[2017-08-03 05:27] LABS: BASOPHILS % (AUTO) 0.6 % (0.0-2.0); EOSINOPHILS % (AUTO) 0.9 % (0.0-7.0); HEMATOCRIT 27.2 % (31.2-41.9); HEMOGLOBIN 9.1 g/dL (10.9-14.3); LYMPHOCYTES # (AUTO) 0.3 K/uL (20.0-40.0); LYMPHOCYTES % (AUTO) 8.6 % (20.5-51.5); MEAN CORPUSCULAR HEMOGLOBIN 28.6 uug (24.7-32.8); MEAN CORPUSCULAR HGB CONC 34 g/dL (32.3-35.6); MEAN CORPUSCULAR VOLUME 84.9 fL (75.5-95.3); MONOCYTES # (AUTO) 0.1 K/uL (2.0-10.0); MONOCYTES % (AUTO) 3.7 % (0.0-11.0); NEUTROPHILS # (AUTO) 3.3 K/uL (1.8-8.9); NEUTROPHILS % (AUTO) 86.2 % (38.5-71.5); PLATELET COUNT (AUTO) 137 K/uL (179-408); WHITE BLOOD COUNT (AUTO) 3.8 K/uL (3.8-11.8)
[2017-08-03 05:29] LABS: CARBON DIOXIDE 26 mmol/L (21-32); CHLORIDE 112 mmol/L (98-107); CREATININE 1.1 mg/dL (0.6-1.3); GLUCOSE 122 mg/dL (74-106); MAGNESIUM 2.1 mg/dL (1.8-2.4); PHOSPHOROUS 2.7 mg/dL (2.5-4.9); POTASSIUM 3.6 mmol/L (3.5-5.1); UREA NITROGEN, BLOOD 20 mg/dL (7-18)
[2017-08-03] MEDS: ASCORBIC ACID 250 MG TABLET PO SCH (08:16)
[2017-08-03] MEDS: MULTIVITS W-FE,OTHER MIN 15 ML UDC GT SCH (08:16)
[2017-08-03] MEDS: ZINC SULFATE 220 MG CAPSULE GT SCH (08:16)
[2017-08-03] MEDS: FAMOTIDINE 20 MG TABLET GT SCH (08:16)
[2017-08-03] MEDS: SILVER SULFADIAZINE 1% CREAM 50 GM TP SCH ×2 (08:18→20:26)
[2017-08-03] MEDS: Z GUARD REMEDY PASTE 57 GM TUBE TOP SCH ×2 (08:19→20:26)
[2017-08-03] MEDS: SODIUM HYPOCHLORITE 0.125% 473 ML BOTTLE TP SCH ×2 (08:21→16:17)
[2017-08-03] MEDS ORDERED: MULTIVITAMINS 5 ML LIQUID UDC GT SCH (09:00)
[2017-08-03 09:24] LABS: ABG BASE EXCESS -2.6 mmol/L; ABG HCO3 20.3 mmol/L; ABG PCO2 28.2 mmHg (35.0-45.0); ABG PH 7.476 (7.350-7.450); ABG PO2 105.3 mmHg (75.0-100.0); ABG SITE RIGHT RADIAL; ABG TOTAL HEMOGLOBIN 8.7 G/dL (12.0-16.0); COHb 0.6 % (0.5-1.5); MetHb 0.5 % (0.0-1.5); O2Hb 97.2 % (94.0-97.0)
[2017-08-03] MEDS ORDERED: FUROSEMIDE 40 MG/4 ML VIAL IV ONE (11:15)
[2017-08-03] MEDS ORDERED: BUMETANIDE INJ 2 MG in IV DEXTROSE 5% 32 ML IV ONE (11:15)
--- NOTE | 2017-08-03 15:53 | NUR ---
Clinical pharmacy note-Vancomycin dosing per pharmacy S; Resume Vancomycin dosing on this patient for pneumonia O: BUN 20 scr 1.1 WBC 3.8 Temp 101.2 Assessment/Plan: Will continue Vancomycin 1 gram IV every 30 hrs (first dose tonight at 1900) and draw trough by 4th dose(not ordered yet) for expected trough around 15. Will monitor daily.
--- NOTE | 2017-08-03 17:00 | NUR ---
PT RECEIVED FROM CCU. PT IS LAYING IN BED COMFORTABLY. NO S/S OF PAIN NOTED. PT IS ON 10 L SIMPLE MASK. ALL SAFETY NEEDS ARE MET. PICC LINE IS INTACT/PATENT. WILL CONTINUE TO MONITOR. Addendum: 08/03/17 at 2222 by JIGNA CANO RN pt is tachypneic with shallow breathing and rhonchi throughout the lungs.
--- NOTE | 2017-08-03 21:45 | NUR ---
pt has a high heart rate, pt is sunctioned. small - moderate phlegm luz color came out. o2 sat is in 80's. Pt has been put on non-rebreather mask. Heart rate is in 140's sinus tach with frequesnt PVC. Dr Leslie is paged, demetrius for abg stat. Addendum: 08/03/17 at 2228 by JIGNA CANO RN ABG results paged to Dr Leslie, awaiting orders
[2017-08-03 22:18] LABS: ABG BASE EXCESS 6.2 mmol/L; ABG PCO2 35.2 mmHg (35.0-45.0); ABG PH 7.534 (7.350-7.450); ABG PO2 54.3 mmHg (75.0-100.0); ABG SITE LEFT RADIAL; ABG TOTAL HEMOGLOBIN 11.1 G/dL (12.0-16.0); COHb 0.4 % (0.5-1.5); MetHb 0.4 % (0.0-1.5); O2Hb 90.5 % (94.0-97.0)
--- NOTE | 2017-08-03 22:37 | NUR ---
Per Dr Leslie "place the patient bipap, do ABG 1 hour after bi-pap have started". Order noted, carried out.
--- NOTE | 2017-08-03 23:00 | NUR ---
Received SBAR report from Sarbjit Fraire. Obtunded. Hyperthermic. Tachycardic. Tachypneic, overriding BiPAP respiratory rate. Hypoxic at SpO2 90% despite FiO2 of 100%.
--- NOTE | 2017-08-03 23:30 | NUR ---
ABGs drawn on BiPAP and resulted. Dr. Mccain notified, ordered intubation.
[2017-08-03 23:32] LABS: ABG BASE EXCESS 5.9 mmol/L; ABG HCO3 28.2 mmol/L; ABG PCO2 32.7 mmHg (35.0-45.0); ABG PH 7.554 (7.350-7.450); ABG PO2 58.9 mmHg (75.0-100.0); ABG SITE LEFT RADIAL; ABG TOTAL HEMOGLOBIN 10.7 G/dL (12.0-16.0); COHb 0.2 % (0.5-1.5); MetHb 0.4 % (0.0-1.5); O2Hb 92.1 % (94.0-97.0); VENT MODE BIPAP
[2017-08-04] VITALS (78 sets, daily range): BP systolic 57–155; BP diastolic 32–99
[2017-08-04] MEDS ORDERED: MIDAZOLAM HCL 2 MG/2 ML VIAL IV ONE
[2017-08-04] MEDS ORDERED: IV NORMAL SALINE 1000 ML BAG IV ONE
--- NOTE | 2017-08-04 | NUR ---
Tres JOHNSTON, Delia KRUSEN, S Franco RT, Rosa Isela Oliver RT and myself at bedside for intubation. ETT 7.5 at 24 cm lip line. Vent settings of AC 14, Vt 500, PEEP 5, FiO2 100%
[2017-08-04] MEDS ORDERED: MIDAZOLAM HCL 2 MG/2 ML VIAL ONE (00:07)
--- NOTE | 2017-08-04 00:30 | NUR ---
PATIENT RECEIVED ON [id number] @10LPM. INCREASED RR/ LOW O2 SAT NOTED @ 2230. NRB MASK AT 100% PLACED FOR LOW O2 SAT. PRN TX ADMINISTERED WITHOUT COMPLICATIONS. MD ORDERED BIPAP PER ABG RESULTS. 2ND ABG DRAWN AT 2330, INTUBATION PER MD. PATIENT WAS VENTILATED WITH AMBUBAG 100% FIO2 PRIOR TO INTUBATION. 7.5 ETTUBE, 24CM LIPLINE. ROLAND RN, MARELY RT AT BEDSIDE WITH KRISTEL TIRADO. CO2 DETECTOR SHOWS PROPER COLOR CHANGE. AUSCULTATION REVEALS BILATERAL BREATHSOUNDS. XRAY TO CONFIRM PLACEMENT. ANCHORFAST IN PLACE. PT BAGGED AND TRANSPORTED TO ICU.
--- NOTE | 2017-08-04 00:30 | NUR ---
Hyperthermic, see vital signs chart. Cooling measures applied. Patient placed on cooling blanket. Continue to monitor
--- NOTE | 2017-08-04 00:35 | NUR ---
PT WAS ON 100% NRB MASK APPROX 2300- THEN PT PLACED ON BI/PAP AROUND 2315 WITH FULL MASK, THEN ABG WAS DONE RESP. ALKALOSIS , THEN DOCTOR ORDERED PT TO BE INTUBATED, AROUND 2330 BY ER DOCTOR HUMPHRIES, WITH 7.5 ET/TUBE IN PLACE WITH ANCHOR FAST,24CM LIP LINE, PT DOES ASSIST VERY RAPID BREATHING OVER 40 RR, INITIAL SETTINGS; FOR VENT A/C 14, VT 500ML, 100%, PEEP5, PT MOVING AROUND AND DOES ASSIST MOST OF THE TIME, SUCTIONED PALE YELL TINGE SECRETIONS, SPUTUM TO BE DONE, ABG . Rosa Isela MCHUGH CARDIOVASCULAR OR NURSE Addendum: 08/04/17 at 0039 by GEOVANY MCHUGH RT Amended: Links added.
[2017-08-04] MEDS ORDERED: PHENYLEPHRINE IV 80 MG in IV DEXTROSE 5% 250 ML IV PRN (01:15)
[2017-08-04] MEDS: PROPOFOL 100 ML IV PRN ×2 (01:15→16:30)
[2017-08-04] MEDS ORDERED: PROPOFOL 100 ML ONE (01:30)
[2017-08-04] MEDS: VANCOMYCIN IV 1 G in PREMIXED 0 EACH IV SCH (01:31)
[2017-08-04] MEDS: BLOOD SUGAR DIAGNOSTIC 1 EACH STRIP VI SCH ×4 (01:36→17:44)
[2017-08-04] MEDS: ACETAMINOPHEN 650 MG SUPP.RECT RC PRN (03:18)
[2017-08-04] MEDS: NOREPINEPHRINE BITARTRATE 8 MG in IV DEXTROSE 5% 500 ML IV PRN ×2 (05:00→16:43)
[2017-08-04 05:25] LABS: ABG BASE EXCESS 2.1 mmol/L; ABG HCO3 24.8 mmol/L; ABG PCO2 31.6 mmHg (35.0-45.0); ABG PH 7.512 (7.350-7.450); ABG PO2 69.6 mmHg (75.0-100.0); ABG SITE LEFT RADIAL; ABG TOTAL HEMOGLOBIN 10.2 G/dL (12.0-16.0); COHb 0.3 % (0.5-1.5); MetHb 0.3 % (0.0-1.5); VENT MODE VENT - A/C; VT, ABG 500 mL
[2017-08-04] MEDS ORDERED: NOREPINEPHRINE BITARTRATE 4 MG/4 ML VIAL IV ONE (05:25)
[2017-08-04 05:41] LABS: BASOPHILS % (AUTO) 0.3 % (0.0-2.0); EOSINOPHILS % (AUTO) 0.1 % (0.0-7.0); HEMATOCRIT 26.7 % (31.2-41.9); HEMOGLOBIN 8.8 g/dL (10.9-14.3); LYMPHOCYTES # (AUTO) 0.2 K/uL (20.0-40.0); LYMPHOCYTES % (AUTO) 10.4 % (20.5-51.5); MEAN CORPUSCULAR HEMOGLOBIN 28.2 uug (24.7-32.8); MEAN CORPUSCULAR HGB CONC 33 g/dL (32.3-35.6); MEAN CORPUSCULAR VOLUME 85.5 fL (75.5-95.3); MONOCYTES % (AUTO) 1.9 % (0.0-11.0); NEUTROPHILS # (AUTO) 2.1 K/uL (1.8-8.9); NEUTROPHILS % (AUTO) 87.3 % (38.5-71.5); PLATELET COUNT (AUTO) 100 K/uL (179-408); RED BLOOD CELL COUNT(AUTO) 3.12 MIL/uL (3.63-4.92); WHITE BLOOD COUNT (AUTO) 2.4 K/uL (3.8-11.8)
[2017-08-04 05:49] LABS: CARBON DIOXIDE 28 mmol/L (21-32); CHLORIDE 114 mmol/L (98-107); CREATININE 1.2 mg/dL (0.6-1.3); GLUCOSE 106 mg/dL (74-106); MAGNESIUM 1.8 mg/dL (1.8-2.4); PHOSPHOROUS 1.8 mg/dL (2.5-4.9); UREA NITROGEN, BLOOD 28 mg/dL (7-18)
[2017-08-04 06:09] LABS: POTASSIUM 2.7 mmol/L (3.5-5.1)
[2017-08-04] MEDS: MEROPENEM 0.5 G in IV NORMAL SALINE 50 ML IV SCH ×2 (06:25→17:31)
--- NOTE | 2017-08-04 07:26 | NUR ---
Medications override from pyxis, pharmacy closed with new orders. 0100 Propofol 0500 Levophed see eMAR
[2017-08-04] MEDS ORDERED: POTASSIUM CHLORIDE 20 MEQ POWDER PACKET GT ONE ×3 (07:30→13:00)
--- NOTE | 2017-08-04 07:30 | NUR ---
Patient is resting in bed. Temperature now WNL after cooling measures applied. Propofol at 15 mcg/kg/min. Started on Levophed at 0500 for blood pressure support, currently at rate of 7 mcg/min. NSR with HR 90-110. ETT7.5 at 24 cm lip line. AC 14, Vt 500, PEEP 5, FiO2 100%. R nare NG tube, clamped at this time. Cardenas in place, patent, with total 850 mL output. On first step mattress. RUE PICC intact, patent. SBAR report given to TR Ambriz
[2017-08-04] MEDS: MICAFUNGIN SODIUM 100 MG in IV NORMAL SALINE 100 ML IV SCH (08:01)
[2017-08-04] MEDS: ASCORBIC ACID 250 MG TABLET PO SCH (08:04)
[2017-08-04] MEDS: MULTIVITS W-FE,OTHER MIN 15 ML UDC GT SCH (08:04)
[2017-08-04] MEDS: ZINC SULFATE 220 MG CAPSULE GT SCH (08:05)
[2017-08-04] MEDS: FAMOTIDINE 20 MG TABLET GT SCH (08:05)
[2017-08-04] MEDS: SODIUM HYPOCHLORITE 0.125% 473 ML BOTTLE TP SCH ×2 (08:05→16:00)
[2017-08-04] MEDS: Z GUARD REMEDY PASTE 57 GM TUBE TOP SCH ×2 (08:07→20:34)
[2017-08-04] MEDS: DIABETICSOURCE AC 1000ML LIQUID GT PRN (08:07)
[2017-08-04] MEDS: SILVER SULFADIAZINE 1% CREAM 50 GM TP SCH ×2 (08:08→20:34)
[2017-08-04 08:32] LABS: BAND % (MANUAL) 30 % (0-10); EOSINOPHILS % (MANUAL) 1 % (0-8); LYMPHOCYTES % (MANUAL) 13 % (20-40); METAMYELOCYTES % 3 % (0-1); MONOCYTES % (MANUAL) 2 % (2-10); MYELOCYTES % 1 % (0-0); NEUTROPHILS % (MANUAL) 50 % (42-75)
[2017-08-04] MEDS: POTASSIUM CHLORIDE 50 ML IV SCH ×2 (10:09→12:31)
--- NOTE | 2017-08-04 10:14 | NUR ---
PT ON TOLBERT VENT, SETTINGS AC 14, Vt 500, +5, 70% FIO2. ETT RETRACTED 2CM PER MD ORDERS, SECURED AT 22CM LIP LINE. NO SOB, PT TOLERATING VENT SETTINGS WELL. HAS MINIMAL. AMOUNT OF WHITE THIN SECRETIONS. ALARMS ARE ON AND AUDIBLE, BVM AT BEDSIDE. WILL CONTINUE TO MONITOR.
[2017-08-04] MEDS: INSULIN REGULAR, HUMAN 300 UNIT/3 ML VIAL SQ PRN ×2 (12:37→17:33)
--- NOTE | 2017-08-04 15:14 | NUR ---
Clinical pharmacy note-Vancomycin dosing per pharmacy S; Resume Vancomycin dosing on this patient for pneumonia O: BUN 28 scr 1.2 WBC 2.4 Temp 104.7 Assessment/Plan: Will continue Vancomycin 1 gram IV every 30 hrs (second dose at 0100 today) and draw trough by 4th dose(not ordered yet) for expected trough around 15. Will monitor daily.
[2017-08-04] MEDS ORDERED: NEUTRA PHOS PACKET GT ONE (16:15)
--- NOTE | 2017-08-04 20:00 | NUR ---
RECEIVED PT ORALLY INTUBATED TO VENT W/ SETTINGS OF AC-14,TV-400, FIO2-60%, PEEP-+5 W/ O2 SAT OF 100% . ON DIPRIVAN DRIP @ 20MCQ/KG/MIN ON NILS. ON LEVOPHED DRIP @ 6MCQ/MIN. NGT ON R NARE, CHECKED PLACEMENT & CHECKED RESIDUAL NONE NOTED. ON TUBE FDG OF DIABETASOURCE @ 50CC/HR. REPOSITIONED W/ HOB ELEVATED. SUCTIONED VIA ETT & ORALLY W/ SCANTY TANNISH THIN MUCOUS. AFEBRILE.
--- NOTE | 2017-08-04 22:00 | NUR ---
HS CARE DONE & ORAL CARE DONE. REPOSITIONED & SUCTINED.
[2017-08-05] VITALS (68 sets, daily range): BP systolic 90–134; BP diastolic 41–77
[2017-08-05] MEDS: BLOOD SUGAR DIAGNOSTIC 1 EACH STRIP VI SCH ×5 (00:29→23:46)
--- NOTE | 2017-08-05 01:35 | NUR ---
PT ON CONT TOLBERT VENT WITH 7.5 ET/TUBE IN PLACE , 22CM LIP LINE WITH ANCHOR FAST IN PLACE AND SECURED, ROTATE SIDE TO SIDE TO CENTER, CUFF PRESSURE 24CM, SUCTIONED LIGHT PALE YELL TINGE SECRETIONS, SUCTION MOUTH WITH NARAYAN NICHOLSON WELL, CHANGE HME ,ALL ALARMS OK, AMBU BAG AT BEDSIDE, NO VENT CHANGES MADE AT THIS TIME, PT IS SEDATED ON DIPRIVAN, PT DOES ASSIST AT TIMES, CURRENT VENT SETTINGS, A/C 14, VT 400ML, PEEP5, 60%, . D LOLITA CHAMORROP Addendum: 08/05/17 at 0139 by GEOVANY MCHUGH RT Amended: Links added.
--- NOTE | 2017-08-05 04:00 | NUR ---
AM CARE DONE. ORAL CARE DONE. HAD LARGE SOFT BROWNISH STOOL. REPOSITIONED ON HER SIDE W/ HOB ELEVATED.
[2017-08-05 05:20] LABS: BASOPHILS % (AUTO) 0.4 % (0.0-2.0); EOSINOPHILS % (AUTO) 0.3 % (0.0-7.0); HEMATOCRIT 24.6 % (31.2-41.9); HEMOGLOBIN 8.1 g/dL (10.9-14.3); LYMPHOCYTES # (AUTO) 0.7 K/uL (20.0-40.0); LYMPHOCYTES % (AUTO) 6.2 % (20.5-51.5); MEAN CORPUSCULAR HEMOGLOBIN 27.8 uug (24.7-32.8); MEAN CORPUSCULAR HGB CONC 33 g/dL (32.3-35.6); MEAN CORPUSCULAR VOLUME 84.3 fL (75.5-95.3); MONOCYTES # (AUTO) 0.1 K/uL (2.0-10.0); MONOCYTES % (AUTO) 0.8 % (0.0-11.0); NEUTROPHILS # (AUTO) 10.5 K/uL (1.8-8.9); NEUTROPHILS % (AUTO) 92.3 % (38.5-71.5); PLATELET COUNT (AUTO) 130 K/uL (179-408); RED BLOOD CELL COUNT(AUTO) 2.92 MIL/uL (3.63-4.92); WHITE BLOOD COUNT (AUTO) 11.4 K/uL (3.8-11.8)
[2017-08-05 05:30] LABS: CARBON DIOXIDE 26 mmol/L (21-32); CHLORIDE 110 mmol/L (98-107); CREATININE 1.3 mg/dL (0.6-1.3); GLUCOSE 107 mg/dL (74-106); PHOSPHOROUS 2.6 mg/dL (2.5-4.9); POTASSIUM 4.8 mmol/L (3.5-5.1); UREA NITROGEN, BLOOD 35 mg/dL (7-18)
[2017-08-05] MEDS: MEROPENEM 0.5 G in IV NORMAL SALINE 50 ML IV SCH ×2 (05:48→17:31)
--- NOTE | 2017-08-05 06:04 | NUR ---
OFF TUBE FDG,, WILL RESTART @0800.
[2017-08-05] MEDS: VANCOMYCIN IV 1 G in PREMIXED 0 EACH IV SCH (06:39)
--- NOTE | 2017-08-05 07:26 | NUR ---
PT RECEIVED ON CONTINUOUS MECHANICAL VENTILATION. CURRENT VENT SETTINGS ARE AC 14, VT 500, PEEP +5, FIO2 60%. PT APPEARS TO BE TOLERATING SETTINGS WELL. NO CHANGES MADE AT THIS TIME. PT IS ORALLY INTUBATED WITH 7.5 ETT APPROXIMATELY 22CM AT THE LIP LINE. ETT IS SECURED WITH ANCHOR-FAST. VENT ALARMS CHECKED, ARE ON AND AUDIBLE. SUCTIONED SMALL AMOUNT OF THICK, YELLOWISH SECRETIONS. HME CHANGED. ORAL CARE DONE. AMBU BAG IS AT BEDSIDE. VENT IS PLUGGED INTO RED EMERGENCY OUTLET. ABG TO BE DONE AT 0800. WILL CONTINUE TO MONITOR THROUGHOUT SHIFT.
[2017-08-05] MEDS: FAMOTIDINE 20 MG TABLET GT SCH ×2 (07:50→08:17)
[2017-08-05] MEDS: ZINC SULFATE 220 MG CAPSULE GT SCH ×2 (07:50→08:17)
[2017-08-05] MEDS: MULTIVITS W-FE,OTHER MIN 15 ML UDC GT SCH ×2 (07:51→08:17)
[2017-08-05] MEDS: ASCORBIC ACID 250 MG TABLET PO SCH ×2 (07:51→08:17)
[2017-08-05] MEDS: Z GUARD REMEDY PASTE 57 GM TUBE TOP SCH ×2 (07:52→20:32)
[2017-08-05] MEDS: SODIUM HYPOCHLORITE 0.125% 473 ML BOTTLE TP SCH ×3 (07:52→16:45)
[2017-08-05] MEDS: SILVER SULFADIAZINE 1% CREAM 50 GM TP SCH ×3 (07:52→21:06)
[2017-08-05 08:12] LABS: ABG BASE EXCESS 0.3 mmol/L; ABG PCO2 34.5 mmHg (35.0-45.0); ABG PO2 132.1 mmHg (75.0-100.0); ABG SITE LEFT RADIAL; MetHb 0.5 % (0.0-1.5); O2Hb 97.7 % (94.0-97.0); VENT MODE VENT - A/C; VT, ABG 400 mL
[2017-08-05] MEDS: PROPOFOL 100 ML IV PRN ×2 (08:19→19:58)
[2017-08-05] MEDS: MICAFUNGIN SODIUM 100 MG in IV NORMAL SALINE 100 ML IV SCH (09:27)
[2017-08-05] MEDS: NOREPINEPHRINE BITARTRATE 8 MG in IV DEXTROSE 5% 500 ML IV PRN ×2 (13:40→16:52)
--- NOTE | 2017-08-05 14:11 | NUR ---
Clinical pharmacy note-Vancomycin dosing per pharmacy S; Resume Vancomycin dosing on this patient for pneumonia O: BUN 35 scr 1.3 WBC 11.4 Temp 97.7 Assessment/Plan: Will continue Vancomycin 1 gram IV every 30 hrs for today (3rd dose at 0700 today) and draw trough by 4th dose(ordered for 08/06 at 1230). Pharmacy shall check level & adjust the dose if needed. Will monitor daily.
[2017-08-05] MEDS ORDERED: BISACODYL 10 MG SUPP.RECT RC ONE (14:15)
--- NOTE | 2017-08-05 19:30 | NUR ---
trach to vent AC MODE ,tolerating vent settings saturation 95% rr 25/ hob up suction prn via ett and via mouth . sedated on propofol . Addendum: 08/06/17 at 0308 by MIKEY KIRKLAND RN Amended: Links added. Addendum: 08/06/17 at 310 by MIKEY KIRKLAND RN Amended: Links added. Addendum: 08/06/17 at 4 by MIKEY KIRKLAND RN Amended: Links added. Addendum: 08/06/17 at 0329 by MIKEY KIRKLAND RN patient not trach but intubated to vent .
--- NOTE | 2017-08-05 20:00 | NUR ---
patient on norepinephrine drip at 4 mcg/min to keep sbp >90 mm/hg . continue to monitor vital signs monitoring q15 minutes . Addendum: 08/06/17 at 0311 by MIKEY KIRKLAND RN Amended: Links added. Addendum: 08/06/17 at 0314 by MIKEY KIRKLAND RN Amended: Links added.
--- NOTE | 2017-08-05 22:00 | NUR ---
total care ,turned and reposition patient . elevated upper and lower extremities with pillows ,heels off bed . no new skin breakdown noted Addendum: 08/06/17 at 0314 by MIKEY KIRKLAND RN Amended: Links added.
[2017-08-06] VITALS (96 sets, daily range): BP systolic 83–131; BP diastolic 40–76
--- NOTE | 2017-08-06 04:00 | NUR ---
am care done ,changed soiled linens and gown skin care done . no bm noted on shift . Cardenas with adequate urinary output .tolerating vent settings see flow sheet. lightly sedated on propofol patient open eyes spontaneously and to name with eyes contact ,move upper and lower extremities slow and week.
[2017-08-06 05:26] LABS: CARBON DIOXIDE 25 mmol/L (21-32); CHLORIDE 111 mmol/L (98-107); CREATININE 1.2 mg/dL (0.6-1.3); GLUCOSE 125 mg/dL (74-106); MAGNESIUM 2.1 mg/dL (1.8-2.4); PHOSPHOROUS 2.3 mg/dL (2.5-4.9); POTASSIUM 4.3 mmol/L (3.5-5.1); UREA NITROGEN, BLOOD 31 mg/dL (7-18)
[2017-08-06 05:33] LABS: BASOPHILS % (AUTO) 0.3 % (0.0-2.0); EOSINOPHILS % (AUTO) 0.7 % (0.0-7.0); HEMATOCRIT 36.4 % (31.2-41.9); HEMOGLOBIN 12.2 g/dL (10.9-14.3); LYMPHOCYTES # (AUTO) 0.6 K/uL (20.0-40.0); LYMPHOCYTES % (AUTO) 10.1 % (20.5-51.5); MEAN CORPUSCULAR HEMOGLOBIN 28.2 uug (24.7-32.8); MEAN CORPUSCULAR HGB CONC 34 g/dL (32.3-35.6); MEAN CORPUSCULAR VOLUME 83.8 fL (75.5-95.3); MONOCYTES # (AUTO) 0.1 K/uL (2.0-10.0); MONOCYTES % (AUTO) 2.1 % (0.0-11.0); NEUTROPHILS # (AUTO) 4.8 K/uL (1.8-8.9); NEUTROPHILS % (AUTO) 86.8 % (38.5-71.5); PLATELET COUNT (AUTO) 107 K/uL (179-408); RED BLOOD CELL COUNT(AUTO) 4.34 MIL/uL (3.63-4.92); WHITE BLOOD COUNT (AUTO) 5.6 K/uL (3.8-11.8)
[2017-08-06] MEDS: BLOOD SUGAR DIAGNOSTIC 1 EACH STRIP VI SCH ×4 (05:43→23:18)
[2017-08-06] MEDS: MEROPENEM 0.5 G in IV NORMAL SALINE 50 ML IV SCH ×2 (05:43→17:19)
--- NOTE | 2017-08-06 07:45 | NUR ---
PT RECEIVED ON VENT AT THIS PT VENT SETTINGS ARE AC 14, VT 400, PEEP +5 FIO2 40%. PT ET-TUBE 7.5 AT 22CM . PT AT THIS TIME IS TOLERATING VENT WELL NO DISTRESS NOTED PT ORAL CARE WAS DONE PT WAS SUCTION HME WAS CHANGED. PT CUFF PRESSURE WAS CHECKED [id number]. PT VENT ALARMS ON AND AUDIBLE PT AMBU BAG AT BED SIDE. PT ABG WAS DONE. WILL CONTINUE TO MONITOR PT. PT HAS NO WEANING ORDERS AT THIS TIME.
[2017-08-06 07:57] LABS: ABG BASE EXCESS 2.5 mmol/L; ABG HCO3 25.8 mmol/L; ABG PCO2 34.1 mmHg (35.0-45.0); ABG PH 7.497 (7.350-7.450); ABG PO2 72.3 mmHg (75.0-100.0); ABG SITE LEFT RADIAL; ABG TOTAL HEMOGLOBIN 7.9 G/dL (12.0-16.0); MetHb 0.8 % (0.0-1.5); O2Hb 93.5 % (94.0-97.0); VENT MODE VENT - A/C; VT, ABG 500 mL
[2017-08-06] MEDS: PROPOFOL 100 ML IV PRN ×2 (08:36→17:34)
[2017-08-06] MEDS: ZINC SULFATE 220 MG CAPSULE GT SCH (08:36)
[2017-08-06] MEDS: FAMOTIDINE 20 MG TABLET GT SCH (08:36)
[2017-08-06] MEDS: Z GUARD REMEDY PASTE 57 GM TUBE TOP SCH ×2 (08:37→21:28)
[2017-08-06] MEDS: MULTIVITS W-FE,OTHER MIN 15 ML UDC GT SCH ×2 (08:37→09:42)
[2017-08-06] MEDS: DIABETICSOURCE AC 1000ML LIQUID GT PRN (08:39)
[2017-08-06] MEDS: SILVER SULFADIAZINE 1% CREAM 50 GM TP SCH ×2 (08:44→21:29)
[2017-08-06] MEDS: MICAFUNGIN SODIUM 100 MG in IV NORMAL SALINE 100 ML IV SCH (09:42)
[2017-08-06] MEDS: ASCORBIC ACID 250 MG TABLET PO SCH (09:44)
--- NOTE | 2017-08-06 09:45 | NUR ---
Dr. Goins in the unit to examine patient report given see orders.
--- NOTE | 2017-08-06 10:45 | NUR ---
Shailesh BARTON in the unit to examine patient, full report given.
[2017-08-06] MEDS ORDERED: SODIUM PHOSPHATE MM 5 MM in IV DEXTROSE 5% 100 ML IV ONE (11:00)
[2017-08-06 11:14] LABS: BAND % (MANUAL) 8 % (0-10); EOSINOPHILS % (MANUAL) 1 % (0-8); LYMPHOCYTES % (MANUAL) 7 % (20-40); METAMYELOCYTES % 1 % (0-1); MONOCYTES % (MANUAL) 4 % (2-10); MYELOCYTES % 2 % (0-0); NEUTROPHILS % (MANUAL) 77 % (42-75)
--- NOTE | 2017-08-06 16:20 | NUR ---
Clinical pharmacy note-Vancomycin dosing per pharmacy S; Resume Vancomycin dosing on this patient for pneumonia O: BUN 31 scr 1.2 WBC 5.6 Temp 98.4 vanco trough level: 20.6 Assessment/Plan: Will hold vanco for now since vanco trough is above 20 mcg/ml. Will check vanco random level in am 9with am labs). Pharmacy shall review the level for further dosing. Will monitor daily.
[2017-08-06] MEDS: NOREPINEPHRINE BITARTRATE 8 MG in IV DEXTROSE 5% 500 ML IV PRN (17:37)
--- NOTE | 2017-08-06 19:01 | NUR ---
Dr. Macario in the unit to examine patient, report given.
--- NOTE | 2017-08-06 20:00 | NUR ---
Remains on vent. Comfortable on current settings. No weaning today. Sedated on Diprivan drip. Remains on low dose Levophed to keep SBP above 90, MAP above 65. Tube feeding well tolerated, at goal rate 50 ml/hr. HOB as able, aspiration precautions observed. Nursing comfort measures maintained. Also on contact isolation, observed. Nursing comfort measures done. Turned/positioned q 2hr and PRN. Please see CCU flowsheet for full assessment and clinical data.
--- NOTE | 2017-08-06 21:47 | NUR ---
PATIENT RECEIVED ON A MECHANICAL VENTILATOR. PATIENT IS ON THE FOLLOWING SETTINGS: AC 14, VT 400, PEEP +5, 40% FIO2. PATIENT IS ORALLY INTUBATED WITH ET TUBE SIZE 7.5, APPROX. 22 CM LIP LINE. HME CHANGED. VENT ALARMS ARE ON AND AUDIBLE. SUCTIONED SMALL AMOUNTS OF THIN WHITE SECRETIONS. VENT IS PLUGGED IN THE RED OUTLET. AMBU BAG IS BY BEDSIDE. PATIENT IS TOLERATING CURRENT VENT SETTINGS WELL AT THIS TIME. NO SOB NOTED. WILL CONTINUE TO MONITOR THROUGHOUT SHIFT.
[2017-08-07] VITALS (42 sets, daily range): BP systolic 91–128; BP diastolic 40–70
[2017-08-07] MEDS: MORPHINE SULFATE 4 MG/1 ML DISP.SYRIN IV PRN (00:40)
[2017-08-07] MEDS: PROPOFOL 100 ML IV PRN ×3 (04:06→18:48)
[2017-08-07 05:11] LABS: BASOPHILS % (AUTO) 0.3 % (0.0-2.0); EOSINOPHILS # (AUTO) 0.2 K/uL (0.0-0.7); EOSINOPHILS % (AUTO) 1.6 % (0.0-7.0); HEMATOCRIT 21.6 % (31.2-41.9); LYMPHOCYTES % (AUTO) 10.5 % (20.5-51.5); MEAN CORPUSCULAR HEMOGLOBIN 28.5 uug (24.7-32.8); MEAN CORPUSCULAR HGB CONC 34 g/dL (32.3-35.6); MEAN CORPUSCULAR VOLUME 83.2 fL (75.5-95.3); MONOCYTES # (AUTO) 0.5 K/uL (2.0-10.0); MONOCYTES % (AUTO) 5.8 % (0.0-11.0); NEUTROPHILS # (AUTO) 7.8 K/uL (1.8-8.9); NEUTROPHILS % (AUTO) 81.8 % (38.5-71.5); PLATELET COUNT (AUTO) 113 K/uL (179-408); RED BLOOD CELL COUNT(AUTO) 2.59 MIL/uL (3.63-4.92); WHITE BLOOD COUNT (AUTO) 9.5 K/uL (3.8-11.8)
[2017-08-07 05:19] LABS: HEMOGLOBIN 7.4 g/dL (10.9-14.3)
[2017-08-07 05:25] LABS: CARBON DIOXIDE 28 mmol/L (21-32); CHLORIDE 112 mmol/L (98-107); GLUCOSE 100 mg/dL (74-106); MAGNESIUM 2.1 mg/dL (1.8-2.4); PHOSPHOROUS 3.7 mg/dL (2.5-4.9); POTASSIUM 4.1 mmol/L (3.5-5.1); UREA NITROGEN, BLOOD 28 mg/dL (7-18); VANCOMYCIN,RANDOM 15.7 ug/mL (18.0-26.0)
[2017-08-07] MEDS: MEROPENEM 0.5 G in IV NORMAL SALINE 50 ML IV SCH ×2 (05:48→17:59)
[2017-08-07] MEDS: BLOOD SUGAR DIAGNOSTIC 1 EACH STRIP VI SCH ×3 (06:00→18:04)
--- NOTE | 2017-08-07 06:00 | NUR ---
Weaned off Levophed at 0400 and BP closely monitored. General condition unchanged. AM care tolerated well. Please see CCU flowsheet for trends and clinical data.
[2017-08-07] MEDS: FAMOTIDINE 20 MG TABLET GT SCH (08:37)
[2017-08-07] MEDS: ZINC SULFATE 220 MG CAPSULE GT SCH (08:37)
[2017-08-07] MEDS: MULTIVITS W-FE,OTHER MIN 15 ML UDC GT SCH (08:37)
[2017-08-07] MEDS: Z GUARD REMEDY PASTE 57 GM TUBE TOP SCH ×2 (08:39→21:07)
[2017-08-07] MEDS: SILVER SULFADIAZINE 1% CREAM 50 GM TP SCH ×2 (08:39→21:07)
[2017-08-07] MEDS: DIABETICSOURCE AC 1000ML LIQUID GT PRN (08:46)
[2017-08-07] MEDS: MICAFUNGIN SODIUM 100 MG in IV NORMAL SALINE 100 ML IV SCH (08:54)
[2017-08-07] MEDS: ASCORBIC ACID 250 MG TABLET PO SCH (09:05)
[2017-08-07 09:09] LABS: ABG BASE EXCESS 0.7 mmol/L; ABG HCO3 24.4 mmol/L; ABG PCO2 35.4 mmHg (35.0-45.0); ABG PH 7.457 (7.350-7.450); ABG PO2 73.6 mmHg (75.0-100.0); ABG SITE RIGHT RADIAL; ABG TOTAL HEMOGLOBIN 9.2 G/dL (12.0-16.0); COHb 0.9 % (0.5-1.5); MetHb 0.3 % (0.0-1.5); O2Hb 93.6 % (94.0-97.0); VENT MODE VENT - A/C; VT, ABG 400 mL
--- NOTE | 2017-08-07 09:50 | NUR ---
Clinical pharmacy note-Vancomycin dosing per pharmacy S; Resume Vancomycin dosing on this patient for pneumonia O: BUN 28 scr 1.0 WBC 9.5 Temp 98.2 vanco random level 15.7 Assessment/Plan: Due to advanced age and unstable PK, will dose by fall-off random level for now. Vancomycin 1gram x1 will be given today at 1100 and draw random tomorrow with am labs(on order). Will follow the level for further dosing.
[2017-08-07] MEDS ORDERED: VANCOMYCIN IV 1 G in PREMIXED 0 EACH IV ONE (11:00)
--- NOTE | 2017-08-07 12:15 | NUR ---
Dr. Goins in the unit to examine patient full report given see orders.
--- NOTE | 2017-08-07 12:36 | NUR ---
Dr. Roberts cardiology services in the unit to examine patient.
--- NOTE | 2017-08-07 12:39 | NUR ---
At this time blood consent signed by [address] French cardiology services.
--- NOTE | 2017-08-07 16:47 | NUR ---
in the unit perform Dressing changes to Right lower heel. No orders received.
--- NOTE | 2017-08-07 18:12 | NUR ---
RECEIVED PT AWAKE AND RESPONSIVE ON CURRENT VENT SETTINGS. STABLE WITH NO DISTRESS, SATURATING 96-99% ALL DAY. ARTERIAL BLOOD GAS WAS DONE WITH RESULTS HANDED TO JIGNA CANO RN. NO NEW ORDER RECEIVED.
--- NOTE | 2017-08-07 20:00 | NUR ---
Remains intubated on vent. Comfortable on current settings. No vent weaning. Blood transfusion in progress. Remains off vasopressor and VS/rhythm stable. Tube feedings well tolerated at goal rate. Aspiration precautions and contact isolation maintained. Nursing comfort measures observed at all times. Turned/positioned q 2hr and PRN. Please see CCU flowsheet for full assessment and clinical data.
--- NOTE | 2017-08-07 20:45 | NUR ---
Transfusion of PRBCs completed with no ill effects. For AM labs.
--- NOTE | 2017-08-07 23:17 | NUR ---
RECEIVED PT ON A TOLBERT VENT ON THE FOLLOWING SETTINGS THAT ARE CHARTED ON THE MECHANICAL VENT NOTES. HME CHANGED. ORAL CARE DONE. PT IS ORALLY INTUBATED. ET TUBE SIZE 7.5, 22 CM LIP LINE. VENT ALARMS ARE ON AND LOUD. SUCTIONED SMALL AMOUNTS OF THIN WHITE SECRETIONS. VENT IS PLUGGED IN THE RED OUTLET. AMBU BAG IS BY BEDSIDE. NO SOB NOTED AT THIS TIME. NO VENT CHANGES. WILL CONTINUE TO MONITOR.
[2017-08-08] VITALS (22 sets, daily range): BP systolic 90–125; BP diastolic 39–70
[2017-08-08] MEDS: BLOOD SUGAR DIAGNOSTIC 1 EACH STRIP VI SCH ×5 (00:17→23:32)
[2017-08-08 02:26] LABS: *BILIRUBIN,URIN NEGATIVE (NEGATIVE); *BLOOD, URINE NEGATIVE (NEGATIVE); *CLARITY,URINE CLEAR (CLEAR); *COLOR,URINE STRAW (YELLOW); *KETONES,URINE NEGATIVE (NEGATIVE); *PROTEIN,URINE 1+ (NEGATIVE); LEUKOCYTE ESTERASE ,URINE NEGATIVE (NEGATIVE); NITRITE, URINE NEGATIVE (NEGATIVE); UGLUCOSE NEGATIVE (NEGATIVE)
[2017-08-08 02:50] LABS: BACTERIA,URINE FEW /HPF (NONE SEEN); RBC,URINE 0-3 /HPF (0-3); SQUAMOUS EPITHELIAL CELL,UR MODERATE /HPF (NONE SEEN); WBC,URINE 0-3 /HPF (0-3)
[2017-08-08] MEDS: MEROPENEM 0.5 G in IV NORMAL SALINE 50 ML IV SCH ×2 (05:32→17:48)
[2017-08-08 05:34] LABS: BASOPHILS % (AUTO) 0.1 % (0.0-2.0); EOSINOPHILS # (AUTO) 0.2 K/uL (0.0-0.7); EOSINOPHILS % (AUTO) 1.7 % (0.0-7.0); LYMPHOCYTES # (AUTO) 1.3 K/uL (20.0-40.0); LYMPHOCYTES % (AUTO) 12.5 % (20.5-51.5); MEAN CORPUSCULAR HEMOGLOBIN 29.2 uug (24.7-32.8); MEAN CORPUSCULAR HGB CONC 35 g/dL (32.3-35.6); MEAN CORPUSCULAR VOLUME 83.6 fL (75.5-95.3); MONOCYTES # (AUTO) 0.9 K/uL (2.0-10.0); MONOCYTES % (AUTO) 8.6 % (0.0-11.0); NEUTROPHILS # (AUTO) 8.2 K/uL (1.8-8.9); NEUTROPHILS % (AUTO) 77.1 % (38.5-71.5); PLATELET COUNT (AUTO) 111 K/uL (179-408); RED BLOOD CELL COUNT(AUTO) 2.98 MIL/uL (3.63-4.92); WHITE BLOOD COUNT (AUTO) 10.7 K/uL (3.8-11.8)
[2017-08-08 05:52] LABS: ALANINE AMINOTRANSFERASE 15 U/L (14-59); ALKALINE PHOSPHATASE 150 U/L (50-136); ASPARTATE AMINOTRANSFERASE 26 U/L (15-37); BILIRUBIN,TOTAL 0.9 mg/dL (0.2-1.0); CARBON DIOXIDE 27 mmol/L (21-32); CHLORIDE 108 mmol/L (98-107); CREATININE 1.1 mg/dL (0.6-1.3); GLUCOSE 122 mg/dL (74-106); MAGNESIUM 2.1 mg/dL (1.8-2.4); POTASSIUM 4.1 mmol/L (3.5-5.1); UREA NITROGEN, BLOOD 30 mg/dL (7-18); VANCOMYCIN,RANDOM 24.2 ug/mL (18.0-26.0)
[2017-08-08 05:54] LABS: HEMOGLOBIN 8.7 g/dL (10.9-14.3)
[2017-08-08] MEDS: Z GUARD REMEDY PASTE 57 GM TUBE TOP PRN (05:54)
[2017-08-08 05:55] LABS: HEMATOCRIT 24.9 % (31.2-41.9)
--- NOTE | 2017-08-08 06:00 | NUR ---
Noted to have more secretions tonight. Otherwise general condition unchanged. Please see CCU flowsheet for trends and clinical data.
[2017-08-08 06:31] LABS: TOTAL PROTEIN, SERUM 4.9 g/dL (6.4-8.2)
--- NOTE | 2017-08-08 07:50 | NUR ---
PATIENT RECEIVED ON A TOLBERT VENT WITH THE FOLLOWING SETTINGS OF AC14, VT400,+5,40%Fio2. SHE IS ORALLY INTUBATED WITH ET TUBE SIZE 7.5, 22 CM LIP LINE. NO SOB NOTED AT THIS TIME. HME CHANGED. ORAL CARE DONE. VENT ALARMS ARE ON AND AUDIBLE. VENT IS PLUGGED IN THE RED OUTLET. AMBU BAG IS BY BEDSIDE.NO VENT CHANGES. WILL CONTINUE TO MONITOR.
[2017-08-08 08:26] LABS: TRIGLYCERIDES 447 MG/DL (30-150)
[2017-08-08] MEDS: MULTIVITS W-FE,OTHER MIN 15 ML UDC GT SCH (08:55)
[2017-08-08] MEDS: ASCORBIC ACID 250 MG TABLET PO SCH (08:55)
[2017-08-08] MEDS: ZINC SULFATE 220 MG CAPSULE GT SCH (08:56)
[2017-08-08] MEDS: SILVER SULFADIAZINE 1% CREAM 50 GM TP SCH ×2 (08:56→20:42)
[2017-08-08] MEDS: FAMOTIDINE 20 MG TABLET GT SCH (08:56)
[2017-08-08] MEDS: Z GUARD REMEDY PASTE 57 GM TUBE TOP SCH ×2 (08:56→20:41)
[2017-08-08] MEDS: MICAFUNGIN SODIUM 100 MG in IV NORMAL SALINE 100 ML IV SCH (09:11)
[2017-08-08] MEDS: PROPOFOL 100 ML IV PRN ×3 (09:21→21:39)
[2017-08-08 09:23] LABS: ABG BASE EXCESS 2.8 mmol/L; ABG HCO3 26.4 mmol/L; ABG PCO2 36.7 mmHg (35.0-45.0); ABG PH 7.474 (7.350-7.450); ABG SITE LEFT RADIAL; ABG TOTAL HEMOGLOBIN 10.6 G/dL (12.0-16.0); COHb 0.6 % (0.5-1.5); MetHb 0.2 % (0.0-1.5); O2Hb 93.8 % (94.0-97.0); VENT MODE VENT - A/C; VT, ABG 400 mL
[2017-08-08] MEDS: ALBUTEROL SULFATE 2.5 MG/3 ML NEBU NEB PRN (10:51)
--- NOTE | 2017-08-08 14:31 | NUR ---
Clinical pharmacy note-Vancomycin dosing per pharmacy S; 82 YO female; resident of CCU, on Vancomycin for pneumonia O: BUN 30 scr 1.01 WBC 10.7 Temp 99.5 vanco random level 24.2 @ 04:55 Assessment/Plan: Due to advanced age and unstable PK, will dose by fall-off random level for now. Since the random level was above 20 will hold dose for today and will order another level for tomorrow AM (in order). Will follow the level for further dosing.
[2017-08-08 14:37] LABS: BAND % (MANUAL) 4 % (0-10); LYMPHOCYTES % (MANUAL) 10 % (20-40); METAMYELOCYTES % 5 % (0-1); MONOCYTES % (MANUAL) 8 % (2-10); MYELOCYTES % 3 % (0-0); NEUTROPHILS % (MANUAL) 70 % (42-75)
--- NOTE | 2017-08-08 15:15 | NUR ---
Dr. Goins in the unit to examine patient; full report given see orders.
--- NOTE | 2017-08-08 18:30 | NUR ---
Radha Infectious CARBURIZING FURNACE OPERATOR in the unit to examine patient, report given.
--- NOTE | 2017-08-08 19:22 | NUR ---
RECEIVED PT ON CONTINUOUS VENT AC 14 VT 400 PEEP 5 FIO2 40% . ETT 7.5 SECURED AT 22 CM LIP LINE VIA ANCHOR FAST. ETT CUT BY RT PRATIMA. BS DIMINISHED. SUCTION LAVAGE PRN. VENT CHECKED, ALARMS WORKING WELL AND AUDIBLE. NO DISTRESS NOTED AT THIS TIME. WILL CONTINUE TO MONITOR.
--- NOTE | 2017-08-08 20:00 | NUR ---
RECEIVED PT. ORALLY INTUBATED TO VENT W/ SETTINGS OF AC-14, TV-400, FIO2-40%, PEEP-+5, W/ O2 SAT OF 97%. NGT ON R NARE, CHECKED PLACEMENT & RESIDUAL 5CC NOTED, W/ TUBE FDG OF DIABETASOURCE @ 50CC/HR. ON DIPRIVAN DRIP @ 50MCQ/KG/HR DECREASED TO 40MCQ, PT WELL SEDATED VIA PICC LINE ON NILS. SUCTIONED PT ORALLY & VIA ETT W/ THICK MOD. TANNISH MUCOUS. REPOSITIONED PT ON HER SIDE W/ HOB ELEVATED. AFEBRILE.
--- NOTE | 2017-08-08 22:05 | NUR ---
HS CARE DONE & ORAL CARE DONE.
[2017-08-09] VITALS (23 sets, daily range): BP systolic 88–123; BP diastolic 38–66
--- NOTE | 2017-08-09 04:00 | NUR ---
AM CARE DONE. ORAL CARE DONE Q2H & SUCTIONED. REPOSITIONED W/ HOB ELEVATED.
[2017-08-09] MEDS: IV NORMAL SALINE 250 ML IV PRN (05:02)
[2017-08-09 05:11] LABS: BASOPHILS # (AUTO) 0.1 K/uL (0.0-8.0); BASOPHILS % (AUTO) 0.5 % (0.0-2.0); EOSINOPHILS # (AUTO) 0.2 K/uL (0.0-0.7); EOSINOPHILS % (AUTO) 2.1 % (0.0-7.0); HEMATOCRIT 25.6 % (31.2-41.9); HEMOGLOBIN 8.6 g/dL (10.9-14.3); LYMPHOCYTES # (AUTO) 1.3 K/uL (20.0-40.0); LYMPHOCYTES % (AUTO) 11.6 % (20.5-51.5); MEAN CORPUSCULAR HGB CONC 34 g/dL (32.3-35.6); MEAN CORPUSCULAR VOLUME 82.9 fL (75.5-95.3); MONOCYTES # (AUTO) 0.8 K/uL (2.0-10.0); MONOCYTES % (AUTO) 7.5 % (0.0-11.0); NEUTROPHILS # (AUTO) 8.7 K/uL (1.8-8.9); NEUTROPHILS % (AUTO) 78.3 % (38.5-71.5); PLATELET COUNT (AUTO) 136 K/uL (179-408); RED BLOOD CELL COUNT(AUTO) 3.09 MIL/uL (3.63-4.92); WHITE BLOOD COUNT (AUTO) 11.2 K/uL (3.8-11.8)
[2017-08-09] MEDS: PROPOFOL 100 ML IV PRN ×2 (05:11→16:35)
[2017-08-09 05:16] LABS: CARBON DIOXIDE 30 mmol/L (21-32); CHLORIDE 110 mmol/L (98-107); CREATININE 1.1 mg/dL (0.6-1.3); GLUCOSE 108 mg/dL (74-106); MAGNESIUM 2.2 mg/dL (1.8-2.4); POTASSIUM 4.1 mmol/L (3.5-5.1); UREA NITROGEN, BLOOD 30 mg/dL (7-18); VANCOMYCIN,RANDOM 17.2 ug/mL (18.0-26.0)
[2017-08-09] MEDS: MEROPENEM 0.5 G in IV NORMAL SALINE 50 ML IV SCH ×2 (05:18→18:26)
[2017-08-09] MEDS: BLOOD SUGAR DIAGNOSTIC 1 EACH STRIP VI SCH ×4 (05:29→23:34)
[2017-08-09] MEDS: INSULIN REGULAR, HUMAN 300 UNIT/3 ML VIAL SQ PRN (05:31)
--- NOTE | 2017-08-09 06:10 | NUR ---
OFF TUBE FDG. RESUME @ 0800.
--- NOTE | 2017-08-09 07:00 | NUR ---
PT IS LAYING IN BED COMFORTABLY. NO S/S OF RESPIRATORY DISTRESS NOTED PT IS ON VENT WITH SETTINGS AC 14, Vt 400, +5, 40%. 7.5 ETT IS PATENT AND SECURED AT 22CM LIP LINE WITH ANCHOR FAST. NO PAIN NOTED. ALL SAFETY NEEDS ARE MET. PICC LINE INTACT/PATENT. SCD ON. PT IS PROPOFOL AT 35 MCG. PT IS NOTED TO BE SEDATED. WILL CONTINUE TO MONITOR.
[2017-08-09] MEDS: SILVER SULFADIAZINE 1% CREAM 50 GM TP SCH ×2 (08:44→20:41)
[2017-08-09] MEDS: Z GUARD REMEDY PASTE 57 GM TUBE TOP SCH ×2 (08:44→20:40)
[2017-08-09] MEDS: ZINC SULFATE 220 MG CAPSULE GT SCH (08:46)
[2017-08-09] MEDS: FAMOTIDINE 20 MG TABLET GT SCH (08:46)
[2017-08-09] MEDS: MICAFUNGIN SODIUM 100 MG in IV NORMAL SALINE 100 ML IV SCH (08:47)
--- NOTE | 2017-08-09 09:00 | NUR ---
RT PUT THE PT ON CPAP. PT PLACED ON CPAP, PT STARTED TO SHOW RESPIRATORY DISTRESS, BECAME TACHYPNEIC. RR AT 48, PT WAS BEING PLACED BACK ON PREVIOUS SETTINGS DUE TO INCREASED WOB. RR RANGE FROM 35 TO 48 PER MINUTE. ABG DRAWN. PT CURRENTLY ON AC 14, Vt 400, +5, 40%. RN AWARE. 7.5 ETT IS PATENT AND SECURED AT 22CM LIP LINE WITH ANCHOR FAST. WILL CONTINUE TO MONITOR.
[2017-08-09] MEDS: MULTIVITS W-FE,OTHER MIN 15 ML UDC GT SCH (09:38)
[2017-08-09] MEDS: ASCORBIC ACID 250 MG TABLET PO SCH (09:38)
[2017-08-09 09:42] LABS: ABG BASE EXCESS 2.2 mmol/L; ABG HCO3 26.3 mmol/L; ABG PCO2 38.8 mmHg (35.0-45.0); ABG PH 7.449 (7.350-7.450); ABG PO2 84.2 mmHg (75.0-100.0); ABG SITE RIGHT RADIAL; ABG TOTAL HEMOGLOBIN 10.1 G/dL (12.0-16.0); COHb 0.6 % (0.5-1.5); MetHb 0.2 % (0.0-1.5); O2Hb 95.5 % (94.0-97.0); VENT MODE CPAP
--- NOTE | 2017-08-09 09:44 | NUR ---
WEANING ATTEMPT DONE THIS MORNING. PT PLACED ON CPAP, PS 6 FOR APPROX 35 MIN BEFORE BEING PLACED BACK ON PREVIOUS SETTINGS DUE TO INCREASED WOB. RR RANGE FROM 35 TO 48 PER MINUTE. ABG DRAWN. PT CURRENTLY ON AC 14, Vt 400, +5, 40%. RN AWARE. 7.5 ETT IS PATENT AND SECURED AT 22CM LIP LINE WITH ANCHOR FAST. ALARMS ARE ON AND AUDIBLE, BVM AT BEDSIDE. WILL CONTINUE TO MONITOR.
[2017-08-09] MEDS ORDERED: VANCOMYCIN IV 1 G in PREMIXED 0 EACH IV ONE (11:00)
--- NOTE | 2017-08-09 11:00 | NUR ---
DR ZEE IS HERE TO ASSESS THE PT, PT REPORT IS GIVEN, ABG RESULTS ARE GIVEN. NO NEW ORDERS FROM Addendum: 08/09/17 at 1757 by JIGNA CANO RN PT IS NOTED TO HAVE RED TINGED SECRETION WHEN SUCTIONED. DR ZEE IS AWARE
--- NOTE | 2017-08-09 12:00 | NUR ---
ORALIA THRASHER IS HERE TO ASSESS THE PT, PT REPORT IS GIVEN
--- NOTE | 2017-08-09 12:23 | NUR ---
Clinical pharmacy note-Vancomycin dosing per pharmacy S; 82 YO female; resident of CCU, on Vancomycin for pneumonia O: BUN 30 scr 1.1 WBC 11.2 Temp 98.4 vanco random level 17.2 today with am labs Assessment/Plan: Due to advanced age and unstable PK, will dose by fall-off random level for now. Dosed 1gm vanco today at 1100 and ordered next random with am labs on 08/11. Will check level then and re-dose as needed. Will follow
--- NOTE | 2017-08-09 14:00 | NUR ---
DR MARTIN IS HERE TO ASSESS THE PT, PT REPORT GIVEN. NO NEW ORDERS
--- NOTE | 2017-08-09 16:00 | NUR ---
DR KIM IS HERE TO ASSESS THE PT. PT REPORT GIVEN, WENT OVER PT'S EKG
--- NOTE | 2017-08-09 19:05 | NUR ---
PT IS LAYING IN BED COMFORTABLY. NO S/S OF RESPIRATORY DISTRESS NOTED PT IS ON VENT WITH SETTINGS AC 14, Vt 400, +5, 40%. 7.5 ETT IS PATENT AND SECURED AT 22CM LIP LINE WITH ANCHOR FAST. NO PAIN NOTED. ALL SAFETY NEEDS ARE MET. PICC LINE INTACT/PATENT. SCD ON. PT IS PROPOFOL AT 30 MCG. PT IS NOTED TO BE SEDATED.
--- NOTE | 2017-08-09 20:00 | NUR ---
RECEIVED PT. ORALLY INTUBATED TO VENT W/ SETTINGS OF AC-14, TV-400, FIO2-40%, PEEP-+5, W/ O2 SAT OF 96%. ON DIPRIVAN DRIP @ 30MCQ/KG/MIN ON NILS PICC LINE. NGT ON R NARE , CHECKED PLACEMENT & CHECKED RESIDUAL 5CC NOTED.ON TUBE FDG OF DIABETA SOURCE 2 50CC/HR. REPOSITIONED ON HER SIDE W/ HOB ELEVATED. AFEBRILE.
--- NOTE | 2017-08-09 22:30 | NUR ---
HS CARE DONE. ORAL CARE DONE. SUCTIONED & REPOSITIONED.
[2017-08-10] VITALS (24 sets, daily range): BP systolic 88–163; BP diastolic 35–88
[2017-08-10] MEDS: PROPOFOL 100 ML IV PRN ×3 (02:31→20:09)
--- NOTE | 2017-08-10 03:32 | NUR ---
PT ON CONT TOLBERT VENT WITH 7.5 ET/TUBE IN PLACE, 22CM LIPLINE, WITH ANCHOR FAST IN PLACE AND SECURED, ROTATED TO CENTER, ORAL CARE, SLIGHTLY BLOODY TINGE EARLIER, NOW CLEANING, UP LAVAGE WITH COLD NS, SUCTION MOUTH WITH YANKAUER, TOLL WELL, PT TENDS TO BREATH RAPID AT TIMES, ESPECIALLY AFTER SUCTIONING, THEN SLOWS DOWN, CHANGES A LOT, CHANGE HME; ALL ALARMS OK, AMBU BAG AT BEDSIDE, WITH GOOD OXYGENATION, WITH NO VENT CHANGES MADE AT THIS TIME, CURRENT VENT SETTINGS, A/C 14, VT 400ML, P5, 40%,, WEANING ON DAY SHIFT TRIAL. Rosa Isela MCHUGH RCP Addendum: 08/10/17 at 0335 by GEOVANY MCHUGH RT Amended: Links added.
--- NOTE | 2017-08-10 04:00 | NUR ---
AM CARE DONE. ORAL CARE DONE. REPOSITIONED & SUCTIONED W/ HOB ELEVATED.
[2017-08-10 05:18] LABS: CARBON DIOXIDE 30 mmol/L (21-32); CHLORIDE 110 mmol/L (98-107); GLUCOSE 124 mg/dL (74-106); MAGNESIUM 2.3 mg/dL (1.8-2.4); PHOSPHOROUS 3.7 mg/dL (2.5-4.9); UREA NITROGEN, BLOOD 31 mg/dL (7-18)
[2017-08-10] MEDS: MEROPENEM 0.5 G in IV NORMAL SALINE 50 ML IV SCH ×2 (05:26→18:38)
[2017-08-10 05:29] LABS: BASOPHILS # (AUTO) 0.1 K/uL (0.0-8.0); BASOPHILS % (AUTO) 0.7 % (0.0-2.0); EOSINOPHILS # (AUTO) 0.3 K/uL (0.0-0.7); HEMOGLOBIN 8.7 g/dL (10.9-14.3); LYMPHOCYTES # (AUTO) 1.4 K/uL (20.0-40.0); LYMPHOCYTES % (AUTO) 10.4 % (20.5-51.5); MEAN CORPUSCULAR HEMOGLOBIN 28.5 uug (24.7-32.8); MEAN CORPUSCULAR HGB CONC 34 g/dL (32.3-35.6); MEAN CORPUSCULAR VOLUME 85.2 fL (75.5-95.3); MONOCYTES # (AUTO) 0.9 K/uL (2.0-10.0); MONOCYTES % (AUTO) 6.8 % (0.0-11.0); NEUTROPHILS # (AUTO) 10.8 K/uL (1.8-8.9); NEUTROPHILS % (AUTO) 80.1 % (38.5-71.5); PLATELET COUNT (AUTO) 153 K/uL (179-408); RED BLOOD CELL COUNT(AUTO) 3.06 MIL/uL (3.63-4.92); WHITE BLOOD COUNT (AUTO) 13.5 K/uL (3.8-11.8)
[2017-08-10] MEDS: BLOOD SUGAR DIAGNOSTIC 1 EACH STRIP VI SCH ×4 (05:43→23:38)
[2017-08-10] MEDS: INSULIN REGULAR, HUMAN 300 UNIT/3 ML VIAL SQ PRN (05:51)
--- NOTE | 2017-08-10 06:00 | NUR ---
OFF TUBE FDG., WILL RESUMED @ 0800.
[2017-08-10] MEDS: IV NORMAL SALINE 250 ML IV PRN (06:38)
[2017-08-10] MEDS: ASCORBIC ACID 250 MG TABLET PO SCH (08:10)
[2017-08-10] MEDS: MULTIVITS W-FE,OTHER MIN 15 ML UDC GT SCH (08:10)
[2017-08-10] MEDS: Z GUARD REMEDY PASTE 57 GM TUBE TOP SCH ×2 (08:11→20:09)
[2017-08-10] MEDS: FAMOTIDINE 20 MG TABLET GT SCH (08:11)
[2017-08-10] MEDS: ZINC SULFATE 220 MG CAPSULE GT SCH (08:11)
[2017-08-10] MEDS: ACETAMINOPHEN 650 MG SUPP.RECT RC PRN (08:11)
[2017-08-10] MEDS: SILVER SULFADIAZINE 1% CREAM 50 GM TP SCH ×2 (08:12→20:08)
[2017-08-10] MEDS: MICAFUNGIN SODIUM 100 MG in IV NORMAL SALINE 100 ML IV SCH (08:22)
[2017-08-10 10:00] LABS: ABG BASE EXCESS 2.6 mmol/L; ABG HCO3 26.3 mmol/L; ABG PO2 56.6 mmHg (75.0-100.0); ABG SITE RIGHT RADIAL; ABG TOTAL HEMOGLOBIN 10.1 G/dL (12.0-16.0); COHb 0.3 % (0.5-1.5); MetHb 0.3 % (0.0-1.5); O2Hb 89.3 % (94.0-97.0); VENT MODE VENT - PSUPPORT; VT, ABG 273 mL
[2017-08-10] MEDS: ALBUTEROL SULFATE 2.5 MG/3 ML NEBU NEB PRN (11:14)
--- NOTE | 2017-08-10 13:07 | NUR ---
Clinical pharmacy note-Vancomycin dosing per pharmacy S; 82 YO female; resident of CCU, on Vancomycin for pneumonia O: BUN 31 scr 1.0 WBC 13.5 Temp 100.8 Assessment/Plan: Due to advanced age and unstable PK, will dose by fall-off random level for now. Ordered next random with am labs on 08/11. Will check level then and re-dose as needed. Will follow
--- NOTE | 2017-08-10 18:11 | NUR ---
RECEIVED PT ON CURRENT VENTILATOR SETTINGS BUT CHANGED TO CPAP WITH PRESSURE SUPPORT OF 6 AT AROUND 9 AM. ABG WAS DRAWN AT 1000 AND HANDED RESULT TO JIGNA CANO WHO CALLED MD FOR THE RESULT. PT RESPIRATORY RATE WAS OBSERVED TO BE INCREASING TO THE 50'S WITH SATURATION GOING DOWN TO THE 80'S, SO WE DECIDED TO PUT HER BACK ON THE VENT WITH SAME OLD SETTINGS. FIO2 WAS ALSO RAISED TO 60. NO NEW ORDER RCEIVED.
--- NOTE | 2017-08-10 19:03 | NUR ---
Pt rec'd on Orellana settings AC 14, VT 400, PEEP+5 and FIO2-60%. No resp. distress noted at this time. Oral care done. 7.5 ETT is patent and secure at approx. 22cm at the left lip. Pt to be monitored throughout the shift, PRN SX and adm'd resp neb txs PRN. BVM is at bedside. Orellana alarm parameters have been checked and remain audible.
--- NOTE | 2017-08-10 20:00 | NUR ---
Low-grade fever noted. Cool bath given. Will continue to monitor. Wound care provided as ordered.
--- NOTE | 2017-08-10 22:00 | NUR ---
Per report, restarted tube feeding at 1900 at rate of 50 ml/hr. Residual checked at this time with 130 mL aspirated. Tube feeding turned off. Will reassess at a later time.
[2017-08-11] VITALS (37 sets, daily range): BP systolic 70–128; BP diastolic 30–97
[2017-08-11] MEDS: ACETAMINOPHEN 650 MG SUPP.RECT RC PRN (00:56)
--- NOTE | 2017-08-11 01:00 | NUR ---
Spiking fever of 102.2F rectally. Sending repeat blood culture and urine culture.
[2017-08-11] MEDS ORDERED: NOREPINEPHRINE BITARTRATE 4 MG/4 ML VIAL IV ONE (02:39)
[2017-08-11] MEDS ORDERED: IV NS 1000 ML 1,000 ML IV ONE (02:45)
[2017-08-11] MEDS ORDERED: IV NORMAL SALINE 500 ML IV ONE (02:45)
--- NOTE | 2017-08-11 02:48 | NUR ---
Zachariah in fever, placed on cooling blanket. Now also hypotensive. Meets criteria for sepsis protocol. Notified Dr. Anig Mccain. Sepsis protocol activated. Blood culture and urine culture sent. New orders received for labs: lactic acid and procalcitonin. Fluid challenge also ordered for total of 1500mL NS bolus. Notified of 2606 BNP, OK to give bolus.
--- NOTE | 2017-08-11 03:00 | NUR ---
Began fluid challenge
[2017-08-11] MEDS: PROPOFOL 100 ML IV PRN ×3 (05:20→22:36)
[2017-08-11] MEDS: IV NORMAL SALINE 250 ML IV PRN (05:20)
[2017-08-11 05:34] LABS: BASOPHILS # (AUTO) 0.1 K/uL (0.0-8.0); BASOPHILS % (AUTO) 0.5 % (0.0-2.0); EOSINOPHILS # (AUTO) 0.2 K/uL (0.0-0.7); EOSINOPHILS % (AUTO) 1.1 % (0.0-7.0); HEMATOCRIT 25.1 % (31.2-41.9); HEMOGLOBIN 8.3 g/dL (10.9-14.3); LYMPHOCYTES # (AUTO) 1.3 K/uL (20.0-40.0); LYMPHOCYTES % (AUTO) 7.3 % (20.5-51.5); MEAN CORPUSCULAR HEMOGLOBIN 27.9 uug (24.7-32.8); MEAN CORPUSCULAR HGB CONC 33 g/dL (32.3-35.6); MEAN CORPUSCULAR VOLUME 84.7 fL (75.5-95.3); MONOCYTES # (AUTO) 0.9 K/uL (2.0-10.0); MONOCYTES % (AUTO) 5.2 % (0.0-11.0); NEUTROPHILS # (AUTO) 15.6 K/uL (1.8-8.9); NEUTROPHILS % (AUTO) 85.9 % (38.5-71.5); PLATELET COUNT (AUTO) 169 K/uL (179-408); RED BLOOD CELL COUNT(AUTO) 2.97 MIL/uL (3.63-4.92); WHITE BLOOD COUNT (AUTO) 18.2 K/uL (3.8-11.8)
--- NOTE | 2017-08-11 05:38 | NUR ---
Pt remains on Orellana with no changes made to the ventilator settings. No resp. distress noted throughout the shift. Pt was sx'd routinely and appeared to tolerate the ventilator settings well. Orellana alarm parameters have been checked and remain audible. 7.5 ETT remains patent and secure at approx. 22cm now at the left side of the mouth. Addendum: 08/11/17 at 0545 by ARMANDO WINN RT BVM is at bedside.
[2017-08-11 05:51] LABS: CARBON DIOXIDE 27 mmol/L (21-32); CHLORIDE 111 mmol/L (98-107); CREATININE 1.1 mg/dL (0.6-1.3); GLUCOSE 90 mg/dL (74-106); MAGNESIUM 2.2 mg/dL (1.8-2.4); PHOSPHOROUS 3.9 mg/dL (2.5-4.9); POTASSIUM 3.8 mmol/L (3.5-5.1); UREA NITROGEN, BLOOD 29 mg/dL (7-18)
--- NOTE | 2017-08-11 06:00 | NUR ---
Hypotension noted s/p fluid challenge. Started on Levophed as ordered.
[2017-08-11] MEDS: MEROPENEM 0.5 G in IV NORMAL SALINE 50 ML IV SCH ×2 (06:03→17:27)
[2017-08-11] MEDS: BLOOD SUGAR DIAGNOSTIC 1 EACH STRIP VI SCH ×4 (06:05→23:50)
[2017-08-11] MEDS: NOREPINEPHRINE BITARTRATE 8 MG in IV DEXTROSE 5% 500 ML IV PRN (06:08)
--- NOTE | 2017-08-11 08:14 | NUR ---
RESUMED CARE POST REPORT. PT LOOKS COMFORTABLE AND STABLE ON CURRENT VENTILATOR SETTINGS THIS MORNING. MORNING ORAL CARE DONE AND REPOSITIONED ET TUBE FROM LEFT SIDE TO MID CENTER. ABG TO BE DONE AT 1000 AND WAITING FOR FURTHER ORDERS.
[2017-08-11] MEDS: Z GUARD REMEDY PASTE 57 GM TUBE TOP SCH ×2 (08:18→21:05)
[2017-08-11] MEDS: ZINC SULFATE 220 MG CAPSULE GT SCH (08:20)
[2017-08-11] MEDS: FAMOTIDINE 20 MG TABLET GT SCH (08:20)
[2017-08-11] MEDS: MULTIVITS W-FE,OTHER MIN 15 ML UDC GT SCH (08:21)
[2017-08-11] MEDS: MICAFUNGIN SODIUM 100 MG in IV NORMAL SALINE 100 ML IV SCH (08:21)
[2017-08-11] MEDS: ASCORBIC ACID 250 MG TABLET PO SCH (08:21)
[2017-08-11] MEDS: SILVER SULFADIAZINE 1% CREAM 50 GM TP SCH ×2 (08:22→21:04)
[2017-08-11 10:14] LABS: ABG PCO2 37.4 mmHg (35.0-45.0); ABG PO2 85.3 mmHg (75.0-100.0); ABG SITE LEFT RADIAL; ABG TOTAL HEMOGLOBIN 5.7 G/dL (12.0-16.0); COHb 2.2 % (0.5-1.5); MetHb 0.5 % (0.0-1.5); VENT MODE VENT - A/C; VT, ABG 400 mL
[2017-08-11 10:48] LABS: BAND % (MANUAL) 15 % (0-10); EOSINOPHILS % (MANUAL) 4 % (0-8); LYMPHOCYTES % (MANUAL) 4 % (20-40); METAMYELOCYTES % 3 % (0-1); MONOCYTES % (MANUAL) 3 % (2-10); MYELOCYTES % 1 % (0-0); NEUTROPHILS % (MANUAL) 70 % (42-75)
--- NOTE | 2017-08-11 11:40 | NUR ---
Pt.was seen by with new orders.
--- NOTE | 2017-08-11 12:00 | NUR ---
Pt.was seen by .
--- NOTE | 2017-08-11 12:50 | NUR ---
Pt.was seen by POLE PEELING MACHINE OPERATOR:Catherine with new orders.
--- NOTE | 2017-08-11 12:50 | NUR ---
Pt.was seen by Alyson.
[2017-08-11] MEDS: METRONIDAZOLE 500 MG TABLET PO SCH ×2 (14:01→21:43)
--- NOTE | 2017-08-11 14:05 | NUR ---
Clinical pharmacy note-Vancomycin dosing per pharmacy S; 82 YO female; resident of CCU, on Vancomycin for pneumonia O: BUN 29 scr 1.1 WBC 18.2 Temp 102.2 random: 20.3 today with am labs Assessment/Plan: Due to advanced age and unstable PK, will dose by fall-off random level for now. No dose today as level high with random. Ordered next random with am labs on 08/12. Will check level then and re-dose as needed. Will follow
[2017-08-11] MEDS: DIABETICSOURCE AC 1000ML LIQUID GT PRN (15:59)
--- NOTE | 2017-08-11 18:30 | NUR ---
PT.WAS SEEN BY ,NO CHANGES IN PT.CONDITION.
--- NOTE | 2017-08-11 18:52 | NUR ---
Received pt on Orellana ventilator with the following settings of AC-14, Vt-400, PEEP+5, FIO2-60%, orally intubated with 7.5 ETT~22cm at lip line. Pt tachypneic, RN Leo notified. Airway care done, pt responded to physical stimuli. ETT moved to the left. Resus. bag at bedside. Vent and alarms on and audible.
[2017-08-12] VITALS (24 sets, daily range): BP systolic 90–123; BP diastolic 38–64
--- NOTE | 2017-08-12 05:06 | NUR ---
Cont. monitor pt on prescribed vent settings. During the shift pt still tachypneic. No changes to vent settings made. Sx and lavage prn. ETT moved X3. Oral care done. HME changed. Resus. bag at bedside. Vent and alarms checked and reset.
[2017-08-12] MEDS: MEROPENEM 0.5 G in IV NORMAL SALINE 50 ML IV SCH ×2 (05:21→18:33)
[2017-08-12] MEDS: METRONIDAZOLE 500 MG TABLET PO SCH ×3 (05:21→21:35)
[2017-08-12] MEDS: PROPOFOL 100 ML IV PRN ×3 (05:34→21:41)
[2017-08-12] MEDS: BLOOD SUGAR DIAGNOSTIC 1 EACH STRIP VI SCH ×4 (06:00→23:55)
[2017-08-12] MEDS: IV NORMAL SALINE 250 ML IV PRN (06:00)
[2017-08-12 06:56] LABS: CARBON DIOXIDE 26 mmol/L (21-32); CHLORIDE 114 mmol/L (98-107); CREATININE 1.1 mg/dL (0.6-1.3); GLUCOSE 128 mg/dL (74-106); PHOSPHOROUS 4.2 mg/dL (2.5-4.9); POTASSIUM 3.8 mmol/L (3.5-5.1); UREA NITROGEN, BLOOD 30 mg/dL (7-18)
[2017-08-12] MEDS: ALBUTEROL SULFATE 2.5 MG/3 ML NEBU NEB PRN (07:06)
--- NOTE | 2017-08-12 07:06 | NUR ---
PT RECEIVED ON OTLBERT VENT WITH SETTINGS AC 14, VT 400, PEEP +5 FIO2 60%. PT ET-TUBE 7.5 AT 22CM . PT TOLERATING SETTINGS WELL AT THIS TIME, NO WEAN ORDERED FOR TODAY, ABG'S TO BE DRAWN THIS AM. VENT ALARMS ARE AUDIBLE, CHECKED AND RESET. BVM AT BEDSIDE. WILL CONTINUE TO MONITOR PT AND REPORT ANY CHANGES.
--- NOTE | 2017-08-12 07:15 | NUR ---
PT IS LAYING IN BED COMFORTABLY. NO S/S OF RESPIRATORY DISTRESS NOTED PT IS ON VENT WITH SETTINGS AC 14, Vt 400, +5, 60%. 7.5 ETT IS PATENT AND SECURED AT 22CM LIP LINE WITH ANCHOR FAST. NO PAIN NOTED. ALL SAFETY NEEDS ARE MET. PICC LINE INTACT/PATENT. SCD ON. PT IS PROPOFOL AT 40 MCG. PT IS NOTED TO BE SEDATED.
[2017-08-12 07:17] LABS: BASOPHILS # (AUTO) 0.1 K/uL (0.0-8.0); BASOPHILS % (AUTO) 0.7 % (0.0-2.0); EOSINOPHILS # (AUTO) 0.3 K/uL (0.0-0.7); EOSINOPHILS % (AUTO) 1.6 % (0.0-7.0); HEMATOCRIT 24.1 % (31.2-41.9); LYMPHOCYTES # (AUTO) 1.5 K/uL (20.0-40.0); LYMPHOCYTES % (AUTO) 8.4 % (20.5-51.5); MEAN CORPUSCULAR HEMOGLOBIN 28.2 uug (24.7-32.8); MEAN CORPUSCULAR HGB CONC 33 g/dL (32.3-35.6); MEAN CORPUSCULAR VOLUME 84.8 fL (75.5-95.3); MONOCYTES # (AUTO) 1.1 K/uL (2.0-10.0); MONOCYTES % (AUTO) 6.5 % (0.0-11.0); NEUTROPHILS # (AUTO) 14.5 K/uL (1.8-8.9); NEUTROPHILS % (AUTO) 82.8 % (38.5-71.5); PLATELET COUNT (AUTO) 177 K/uL (179-408); RED BLOOD CELL COUNT(AUTO) 2.84 MIL/uL (3.63-4.92); WHITE BLOOD COUNT (AUTO) 17.5 K/uL (3.8-11.8)
[2017-08-12] MEDS: ACETAMINOPHEN 650 MG SUPP.RECT RC PRN (08:30)
--- NOTE | 2017-08-12 08:30 | NUR ---
PT HAS 210 ML OF GASTRIC RESIDUAL, PAGED DR MARTIN. PER DR MARTIN "HOLD THE TUBE FEEDING FOR NOW", WILL CONTINUE TO MONITOR.
[2017-08-12] MEDS: SILVER SULFADIAZINE 1% CREAM 50 GM TP SCH ×2 (08:31→21:34)
[2017-08-12] MEDS: ZINC SULFATE 220 MG CAPSULE GT SCH (08:31)
[2017-08-12] MEDS: ASCORBIC ACID 250 MG TABLET PO SCH (08:31)
[2017-08-12] MEDS: Z GUARD REMEDY PASTE 57 GM TUBE TOP SCH ×2 (08:31→21:35)
[2017-08-12] MEDS: MULTIVITS W-FE,OTHER MIN 15 ML UDC GT SCH (08:31)
[2017-08-12] MEDS: FAMOTIDINE 20 MG TABLET GT SCH (08:32)
[2017-08-12] MEDS: MICAFUNGIN SODIUM 100 MG in IV NORMAL SALINE 100 ML IV SCH (08:33)
--- NOTE | 2017-08-12 09:30 | NUR ---
DR ZEE IS HERE TO ASSESS THE PT, PT REPORT IS GIVEN.
[2017-08-12 09:57] LABS: ABG BASE EXCESS 0.9 mmol/L; ABG HCO3 24.4 mmol/L; ABG PCO2 33.8 mmHg (35.0-45.0); ABG PH 7.476 (7.350-7.450); ABG PO2 79.2 mmHg (75.0-100.0); ABG SITE LEFT RADIAL; ABG TOTAL HEMOGLOBIN 8.1 G/dL (12.0-16.0); COHb 1.1 % (0.5-1.5); MetHb 0.3 % (0.0-1.5); O2Hb 94.6 % (94.0-97.0); VENT MODE VENT - A/C 14; VT, ABG 400 mL
--- NOTE | 2017-08-12 11:12 | NUR ---
Clinical pharmacy note-Vancomycin dosing per pharmacy S; 82 YO female; resident of CCU, on Vancomycin for pneumonia(HCAP), sepsis. O: BUN 30 scr 1.1 WBC 17.5 Temp 99.9 random: 12.2 today with am labs(Rx ordered level with am labs but lab cancelled (unknown reason), Rx reordered again around 0930 on am labs. Assessment/Plan: Due to advanced age and unstable PK, will dose by fall-off random level for now. Since level is under 20, 1 gram will be given today at 1200. Ordered next random with am labs on 08/14. Will check level then and re-dose as needed. Will follow
[2017-08-12] MEDS ORDERED: VANCOMYCIN IV 1 G in PREMIXED 0 EACH IV ONE (12:00)
[2017-08-12] MEDS ORDERED: DEXTROSE 5% IV SCH (13:00)
[2017-08-12] MEDS ORDERED: COLISTIMETHATE SODIUM IV SCH (13:00)
[2017-08-12] MEDS: METOCLOPRAMIDE HCL 10 MG/2 ML VIAL IV SCH ×2 (14:48→21:36)
[2017-08-12] MEDS: COLISTIMETHATE SODIUM 75 MG in IV DEXTROSE 5% 100 ML IV SCH (14:48)
[2017-08-12] MEDS: DIABETICSOURCE AC 1000ML LIQUID GT PRN (14:51)
--- NOTE | 2017-08-12 16:20 | NUR ---
talked to chief creative officer in regards of the pt's high residual GI output, per chief creative officer "Reduce the tube feeding rate to 10l/hr, increase the rate to another 10 in 8 hours to the goal of 50l/hr, OPer chief creative officer "We will re-assess her tomorrow". decrease the rate to 10ml/hr at 1620.
--- NOTE | 2017-08-12 17:00 | NUR ---
Dr estrada here to assess the pt, pt report is given.
--- NOTE | 2017-08-12 19:30 | NUR ---
PT IS LAYING IN BED COMFORTABLY. NO S/S OF RESPIRATORY DISTRESS NOTED PT IS ON VENT WITH SETTINGS AC 14, Vt 400, +5, 50%. 7.5 ETT IS PATENT AND SECURED AT 22CM LIP LINE WITH ANCHOR FAST. NO PAIN NOTED. ALL SAFETY NEEDS ARE MET. PICC LINE INTACT/PATENT. SCD ON. PT IS PROPOFOL AT 40 MCG. PT IS NOTED TO BE SEDATED.
--- NOTE | 2017-08-12 20:05 | NUR ---
Pt received on Orellana vent with current settings of AC 14, VT 400, Peep +5, FiO2 50%. Pt is orally intubated with a 7.5 ETT secured approximately at 22cm at the lip with anchor fast. Pt appears to be tolerating vent settings well. Suctioned pt with moderate amount of thick pale-yellowish secretions. Ambu-bag at bedside. Vent alarms functioning and audible. Will continue to monitor pt throughout shift.
[2017-08-13] VITALS (24 sets, daily range): BP systolic 78–136; BP diastolic 31–87
[2017-08-13 05:17] LABS: CARBON DIOXIDE 27 mmol/L (21-32); CHLORIDE 113 mmol/L (98-107); CREATININE 1.1 mg/dL (0.6-1.3); GLUCOSE 90 mg/dL (74-106); MAGNESIUM 2.2 mg/dL (1.8-2.4); PHOSPHOROUS 4.6 mg/dL (2.5-4.9); POTASSIUM 3.8 mmol/L (3.5-5.1); UREA NITROGEN, BLOOD 29 mg/dL (7-18)
[2017-08-13 05:40] LABS: BASOPHILS # (AUTO) 0.1 K/uL (0.0-8.0); BASOPHILS % (AUTO) 0.8 % (0.0-2.0); EOSINOPHILS # (AUTO) 0.4 K/uL (0.0-0.7); EOSINOPHILS % (AUTO) 2.1 % (0.0-7.0); HEMOGLOBIN 7.5 g/dL (10.9-14.3); LYMPHOCYTES # (AUTO) 1.7 K/uL (20.0-40.0); LYMPHOCYTES % (AUTO) 9.4 % (20.5-51.5); MEAN CORPUSCULAR HEMOGLOBIN 27.8 uug (24.7-32.8); MEAN CORPUSCULAR HGB CONC 33 g/dL (32.3-35.6); MEAN CORPUSCULAR VOLUME 85.3 fL (75.5-95.3); MONOCYTES # (AUTO) 1.4 K/uL (2.0-10.0); NEUTROPHILS % (AUTO) 79.7 % (38.5-71.5); PLATELET COUNT (AUTO) 165 K/uL (179-408); WHITE BLOOD COUNT (AUTO) 17.6 K/uL (3.8-11.8)
[2017-08-13] MEDS: METRONIDAZOLE 500 MG TABLET PO SCH (05:46)
[2017-08-13] MEDS: METOCLOPRAMIDE HCL 10 MG/2 ML VIAL IV SCH ×3 (05:46→22:11)
[2017-08-13] MEDS: MEROPENEM 0.5 G in IV NORMAL SALINE 50 ML IV SCH ×2 (05:46→17:31)
[2017-08-13 05:47] LABS: TRIGLYCERIDES 250 MG/DL (30-150)
[2017-08-13] MEDS: BLOOD SUGAR DIAGNOSTIC 1 EACH STRIP VI SCH ×4 (05:47→23:54)
[2017-08-13 06:14] LABS: BAND % (MANUAL) 13 % (0-10); EOSINOPHILS % (MANUAL) 4 % (0-8); LYMPHOCYTES % (MANUAL) 10 % (20-40); METAMYELOCYTES % 3 % (0-1); MYELOCYTES % 2 % (0-0); NEUTROPHILS % (MANUAL) 68 % (42-75)
--- NOTE | 2017-08-13 07:00 | NUR ---
PT IS LAYING IN BED COMFORTABLY. NO S/S OF RESPIRATORY DISTRESS NOTED PT IS ON VENT WITH SETTINGS AC 14, Vt 400, +5, 50%. 7.5 ETT IS PATENT AND SECURED AT 22CM LIP LINE WITH ANCHOR FAST. NO PAIN NOTED. ALL SAFETY NEEDS ARE MET. PICC LINE INTACT/PATENT. SCD ON. PT IS PROPOFOL AT 30 MCG. PT IS NOTED TO BE SEDATED.
--- NOTE | 2017-08-13 07:35 | NUR ---
RECEIVED PT ON TOLBERT VENT WITH VENT SETTINGS OF AC 14, VT 400, PEEP +5, FIO2 50%. NO CHANGES MADE AT THIS TIME. PT IS ORALLY INTUBATED WITH A SIZE 7.5 ETT APPROX. 22CM AT THE LIP. ETT IS SECURED VIA ANCHOR-FAST. VENT CHECK DONE. VENT ALARMS CHECKED, ARE ON AND AUDIBLE. SUCTIONED VERY SMALL AMOUNT OF THICK, YELLOWISH SECRETIONS. ORAL CARE DONE. HME CHANGED NEEDED. BVM IS AT BEDSIDE. NO S/S OF RESPIRATORY DISTRESS NOTED AT THIS TIME. WILL CONTINUE TO MONITOR THROUGHOUT SHIFT.
[2017-08-13] MEDS: FAMOTIDINE 20 MG TABLET GT SCH (08:11)
[2017-08-13] MEDS: ASCORBIC ACID 250 MG TABLET PO SCH (08:11)
[2017-08-13] MEDS: ZINC SULFATE 220 MG CAPSULE GT SCH (08:11)
[2017-08-13] MEDS: MULTIVITS W-FE,OTHER MIN 15 ML UDC GT SCH (08:11)
[2017-08-13] MEDS: Z GUARD REMEDY PASTE 57 GM TUBE TOP SCH ×2 (08:11→20:21)
[2017-08-13] MEDS: SILVER SULFADIAZINE 1% CREAM 50 GM TP SCH ×2 (08:12→20:21)
--- NOTE | 2017-08-13 08:40 | NUR ---
Dr Flannery is here to assess the pt, pt report is given,
[2017-08-13] MEDS: DIABETICSOURCE AC 1000ML LIQUID GT PRN (08:48)
--- NOTE | 2017-08-13 09:00 | NUR ---
Dr Valerio is here to assess the pt, assessed the hell wound and re-dressed the wound. pt report is given . No new orders.
[2017-08-13 09:35] LABS: ABG BASE EXCESS 1.6 mmol/L; ABG HCO3 25.5 mmol/L; ABG PCO2 36.9 mmHg (35.0-45.0); ABG PH 7.457 (7.350-7.450); ABG PO2 86.2 mmHg (75.0-100.0); ABG SITE LEFT RADIAL; ABG TOTAL HEMOGLOBIN 7.7 G/dL (12.0-16.0); COHb 1.2 % (0.5-1.5); MetHb 0.9 % (0.0-1.5); O2Hb 94.9 % (94.0-97.0); VENT MODE VENT - A/C; VT, ABG 400 mL
[2017-08-13] MEDS: MICAFUNGIN SODIUM 100 MG in IV NORMAL SALINE 100 ML IV SCH (09:46)
[2017-08-13] MEDS: PROPOFOL 100 ML IV PRN ×2 (09:57→20:20)
--- NOTE | 2017-08-13 10:30 | NUR ---
dr ny is here to assess the pt. pt report is given. No new orders
[2017-08-13] MEDS: COLISTIMETHATE SODIUM 75 MG in IV DEXTROSE 5% 100 ML IV SCH (14:48)
--- NOTE | 2017-08-13 15:45 | NUR ---
ORALIA Salazar is here to assess the pt. Pt report is given.
--- NOTE | 2017-08-13 20:00 | NUR ---
Previous nurse noted patient meeting criteria for standing order to transfuse 1 unit PRBC for Hgb < 8.0 Dr. Lowery at bedside, states no transfusion necessary at this time. Spoke with Dr Gibson for clarification. okay to hold transfusion unless patient's Hgb reaches below 7.0. Standing order cancelled. Will continue to monitor.
[2017-08-14] VITALS (37 sets, daily range): BP systolic 77–152; BP diastolic 33–75
[2017-08-14] MEDS: PROPOFOL 100 ML IV PRN ×2 (04:16→20:01)
[2017-08-14 05:14] LABS: ALANINE AMINOTRANSFERASE 13 U/L (14-59); ALKALINE PHOSPHATASE 127 U/L (50-136); ASPARTATE AMINOTRANSFERASE 25 U/L (15-37); BILIRUBIN,TOTAL 0.5 mg/dL (0.2-1.0); CARBON DIOXIDE 28 mmol/L (21-32); CHLORIDE 114 mmol/L (98-107); CREATININE 1.1 mg/dL (0.6-1.3); GLUCOSE 106 mg/dL (74-106); MAGNESIUM 2.2 mg/dL (1.8-2.4); PHOSPHOROUS 4.3 mg/dL (2.5-4.9); POTASSIUM 3.9 mmol/L (3.5-5.1); TOTAL PROTEIN, SERUM 5.2 g/dL (6.4-8.2); UREA NITROGEN, BLOOD 29 mg/dL (7-18)
[2017-08-14 05:20] LABS: BASOPHILS # (AUTO) 0.1 K/uL (0.0-8.0); BASOPHILS % (AUTO) 0.8 % (0.0-2.0); EOSINOPHILS # (AUTO) 0.4 K/uL (0.0-0.7); EOSINOPHILS % (AUTO) 2.5 % (0.0-7.0); HEMATOCRIT 23.6 % (31.2-41.9); HEMOGLOBIN 7.8 g/dL (10.9-14.3); LYMPHOCYTES # (AUTO) 1.8 K/uL (20.0-40.0); MEAN CORPUSCULAR HEMOGLOBIN 28.2 uug (24.7-32.8); MEAN CORPUSCULAR HGB CONC 33 g/dL (32.3-35.6); MEAN CORPUSCULAR VOLUME 85.3 fL (75.5-95.3); MONOCYTES # (AUTO) 1.3 K/uL (2.0-10.0); MONOCYTES % (AUTO) 8.3 % (0.0-11.0); NEUTROPHILS # (AUTO) 12.4 K/uL (1.8-8.9); NEUTROPHILS % (AUTO) 77.4 % (38.5-71.5); PLATELET COUNT (AUTO) 145 K/uL (179-408); RED BLOOD CELL COUNT(AUTO) 2.77 MIL/uL (3.63-4.92)
[2017-08-14] MEDS: METOCLOPRAMIDE HCL 10 MG/2 ML VIAL IV SCH ×3 (06:23→21:01)
[2017-08-14] MEDS: MEROPENEM 0.5 G in IV NORMAL SALINE 50 ML IV SCH ×2 (06:23→17:03)
[2017-08-14] MEDS: BLOOD SUGAR DIAGNOSTIC 1 EACH STRIP VI SCH ×4 (06:23→23:44)
[2017-08-14] MEDS: IV NORMAL SALINE 250 ML IV PRN (06:28)
--- NOTE | 2017-08-14 06:49 | NUR ---
No significant events overnight. Patient remained sedated with propofol rate currently at 35 mcg/kg/min. Stable BP throughout night, slightly increased at this time. Vent setting remain the same, SpO2 WNL. On/off tachypneic. NG-tube to R nare, tube feeding titrated as ordered to goal rate of 50 mL/hr. Turned off as ordered at 0600, to resume at 0800. Will endorse to day shift.
--- NOTE | 2017-08-14 07:33 | NUR ---
Pt received in bed, sedated, unable to communicate.. Pt on vent: Orellana with settings: A/C 20, Vt 400, PEEP +5, FiO2 35%, ETT 7.0 approx 21cm at lip.. ETT moved to the center, abrasions on upper right side.. Alarms on and audible.. BVM at bedside.. Will continue to monitor..
[2017-08-14] MEDS: DIABETICSOURCE AC 1000ML LIQUID GT PRN (08:00)
[2017-08-14] MEDS: FAMOTIDINE 20 MG TABLET GT SCH (08:09)
[2017-08-14] MEDS: MULTIVIT, IRON, MIN NO. 8, FA TABLET GT SCH (08:09)
[2017-08-14] MEDS: ZINC SULFATE 220 MG CAPSULE GT SCH (08:09)
[2017-08-14] MEDS: SILVER SULFADIAZINE 1% CREAM 50 GM TP SCH ×2 (08:11→20:48)
[2017-08-14] MEDS: ASCORBIC ACID 250 MG TABLET PO SCH (08:11)
[2017-08-14] MEDS: Z GUARD REMEDY PASTE 57 GM TUBE TOP SCH ×2 (08:11→20:49)
[2017-08-14] MEDS: MICAFUNGIN SODIUM 100 MG in IV NORMAL SALINE 100 ML IV SCH (08:46)
--- NOTE | 2017-08-14 09:45 | NUR ---
BACON DE RINDER Aries Lugo here to see pt. Full report given and made aware of pt's worsening rashes throughout the body. No new orders received.
[2017-08-14 09:50] LABS: ABG PCO2 38.5 mmHg (35.0-45.0); ABG PH 7.463 (7.350-7.450); ABG PO2 92.6 mmHg (75.0-100.0); ABG SITE LEFT RADIAL; ABG TOTAL HEMOGLOBIN 8.2 G/dL (12.0-16.0); COHb 0.8 % (0.5-1.5); O2Hb 95.7 % (94.0-97.0); VENT MODE VENT - A/C; VT, ABG 400 mL
[2017-08-14] MEDS ORDERED: PERMETHRIN 5% CREAM 60 GM TUBE TP ONE (10:15)
[2017-08-14 11:03] LABS: BAND % (MANUAL) 4 % (0-10); BASOPHILS % (MANUAL) 2 % (0-2); EOSINOPHILS % (MANUAL) 3 % (0-8); LYMPHOCYTES % (MANUAL) 8 % (20-40); METAMYELOCYTES % 4 % (0-1); MONOCYTES % (MANUAL) 7 % (2-10); MYELOCYTES % 2 % (0-0); NEUTROPHILS % (MANUAL) 70 % (42-75)
[2017-08-14] MEDS: COLISTIMETHATE SODIUM 75 MG in IV DEXTROSE 5% 100 ML IV SCH (13:33)
[2017-08-14] MEDS: NOREPINEPHRINE BITARTRATE 8 MG in IV DEXTROSE 5% 500 ML IV PRN (18:42)
--- NOTE | 2017-08-14 18:45 | NUR ---
End of shift: Pt resting in bed sedated with fall precautions and safety measures maintained. patient monitor and ventilation alarms working properly wnl. All needs attended.
--- NOTE | 2017-08-14 20:00 | NUR ---
Nera at bedside for assessment. Updates given.
[2017-08-14] MEDS ORDERED: IVERMECTIN 3 MG TABLET PO ONE (20:15)
--- NOTE | 2017-08-14 20:29 | NUR ---
Call from [facility] office regarding lateral transfer to another facility. Updates given. No confirmed hospital placement at this time.
[2017-08-15] VITALS (48 sets, daily range): BP systolic 71–147; BP diastolic 30–72
--- NOTE | 2017-08-15 00:33 | NUR ---
PT ON CONT TOLBERT VENT WITH CURRENT SETTINGS, A/C 14,VT 400ML ,PEEP 5, 50% , PT DOES ASSIST AT TIMES, RAPID AT TIMES, WITH STRONG COUGH EFFORT,PT WITH 7.5 ET/TUBE IN PLACE WITH ANCHOR FAST, RE POSITIONED Q4 HOURS, SUCTIONED LIGHT PALE YELL TINGE SECRETIONS, ORAL CARE DONE , CUFF PRESSURE 26CM, CHANGE HME NO VENT CHANGES MADE AT THIS TIME ,ALL ALARMS OK, AMBU BAG AT BEDSIDE. Rosa Isela CHAMORROP Addendum: 08/15/17 at 0044 by GEOVANY MCHUGH RT Amended: Links added.
[2017-08-15] MEDS: ACETAMINOPHEN 650 MG SUPP.RECT RC PRN (03:13)
--- NOTE | 2017-08-15 04:00 | NUR ---
Thorough bed bath given, all linens replaced, bed cleansed, 1st step mattress removed to be replaced for sterilized mattress. Surtass Analyst made aware to order new mattress.
[2017-08-15] MEDS: PROPOFOL 100 ML IV PRN ×3 (04:35→18:56)
[2017-08-15 05:20] LABS: CARBON DIOXIDE 27 mmol/L (21-32); CHLORIDE 113 mmol/L (98-107); CREATININE 1.1 mg/dL (0.6-1.3); GLUCOSE 103 mg/dL (74-106); PHOSPHOROUS 4.4 mg/dL (2.5-4.9); POTASSIUM 3.9 mmol/L (3.5-5.1); UREA NITROGEN, BLOOD 29 mg/dL (7-18)
[2017-08-15 05:28] LABS: BASOPHILS # (AUTO) 0.2 K/uL (0.0-8.0); EOSINOPHILS # (AUTO) 0.5 K/uL (0.0-0.7); HEMATOCRIT 22.1 % (31.2-41.9); MEAN CORPUSCULAR HGB CONC 34 g/dL (32.3-35.6); MONOCYTES # (AUTO) 1.7 K/uL (2.0-10.0)
[2017-08-15 05:30] LABS: EOSINOPHILS % (AUTO) 2.4 % (0.0-7.0); LYMPHOCYTES # (AUTO) 2.3 K/uL (20.0-40.0); MEAN CORPUSCULAR HEMOGLOBIN 28.9 uug (24.7-32.8); MEAN CORPUSCULAR VOLUME 86.3 fL (75.5-95.3); MONOCYTES % (AUTO) 8.9 % (0.0-11.0); NEUTROPHILS # (AUTO) 14.7 K/uL (1.8-8.9); NEUTROPHILS % (AUTO) 75.7 % (38.5-71.5); PLATELET COUNT (AUTO) 137 K/uL (179-408); RED BLOOD CELL COUNT(AUTO) 2.56 MIL/uL (3.63-4.92); WHITE BLOOD COUNT (AUTO) 19.4 K/uL (3.8-11.8)
[2017-08-15 05:38] LABS: HEMOGLOBIN 7.4 g/dL (10.9-14.3)
[2017-08-15 05:57] LABS: BAND % (MANUAL) 9 % (0-10); EOSINOPHILS % (MANUAL) 4 % (0-8); LYMPHOCYTES % (MANUAL) 5 % (20-40); MONOCYTES % (MANUAL) 9 % (2-10); NEUTROPHILS % (MANUAL) 73 % (42-75)
[2017-08-15] MEDS: MEROPENEM 0.5 G in IV NORMAL SALINE 50 ML IV SCH ×2 (06:15→17:46)
[2017-08-15] MEDS: METOCLOPRAMIDE HCL 10 MG/2 ML VIAL IV SCH ×3 (06:15→21:21)
[2017-08-15] MEDS: BLOOD SUGAR DIAGNOSTIC 1 EACH STRIP VI SCH ×3 (06:15→18:01)
[2017-08-15] MEDS: FAMOTIDINE 20 MG TABLET GT SCH (07:53)
[2017-08-15] MEDS: ZINC SULFATE 220 MG CAPSULE GT SCH (07:53)
[2017-08-15] MEDS: MULTIVIT, IRON, MIN NO. 8, FA TABLET GT SCH (07:53)
[2017-08-15] MEDS: Z GUARD REMEDY PASTE 57 GM TUBE TOP SCH ×2 (07:54→20:42)
[2017-08-15] MEDS: ASCORBIC ACID 250 MG TABLET PO SCH (07:54)
[2017-08-15] MEDS: SILVER SULFADIAZINE 1% CREAM 50 GM TP SCH ×2 (07:55→20:42)
--- NOTE | 2017-08-15 08:40 | NUR ---
SLED MAKER Aries Lugo here to see pt. Full report given. New orders received.
[2017-08-15] MEDS: MICAFUNGIN SODIUM 100 MG in IV NORMAL SALINE 100 ML IV SCH (08:42)
[2017-08-15 10:41] LABS: ABG BASE EXCESS 2.5 mmol/L; ABG HCO3 26.6 mmol/L; ABG PCO2 38.5 mmHg (35.0-45.0); ABG PH 7.457 (7.350-7.450); ABG PO2 117.8 mmHg (75.0-100.0); ABG SITE LEFT RADIAL; COHb 1.9 % (0.5-1.5); MetHb 1.3 % (0.0-1.5); O2Hb 95.4 % (94.0-97.0); VENT MODE VENT - A/C; VT, ABG 400 mL
--- NOTE | 2017-08-15 10:50 | NUR ---
1 unit of PRBC started. Will closely monitor for any adverse blood transfusion reactions.
[2017-08-15] MEDS ORDERED: IVERMECTIN 3 MG TABLET PO ONE (11:00)
--- NOTE | 2017-08-15 11:05 | NUR ---
Monitored pt closely for first 15 minutes. No s/sx of adverse blood transfusion reactions noted from the pt. Pt tolerating transfusion well and will continue to monitor.
--- NOTE | 2017-08-15 14:00 | NUR ---
1 unit of PRBC completed. Pt tolerated blood transfusion well and nad noted.
[2017-08-15] MEDS: COLISTIMETHATE SODIUM 75 MG in IV DEXTROSE 5% 100 ML IV SCH (14:02)
--- NOTE | 2017-08-15 14:22 | NUR ---
Dr. Goins here to see pt. Full report given. New orders received.
--- NOTE | 2017-08-15 16:41 | NUR ---
PT REMAINS ON MECHANICAL VENTILATION AC 14, 500, +5, 50%. TOLERATES SETTINGS WELL NO SOB OR DISTRESS NOTED. ET 7.5 @22 LIP. SECURE WITH ACHOR FAST, NO SIGN OF SKIN BREAKDOWN ON CHEEKS OR UPPER LIP. MINIMAL AMOUNT OF SECRETIONS. SUCTIONED AND LAVAGED CLEAR, SMALL, AND THIN. STRONG COUGH. ABG'S WITHIN NORMAL LIMITS. ALARMS ON AND AUDIBLE. BVM AT BEDSIDE. Addendum: 08/15/17 at 1646 by TESS ZIMMER RT Amended: Links added.
--- NOTE | 2017-08-15 19:02 | NUR ---
Received pt on Orellnaa ventilator with the following settings of AC-14, Vt-400, PEEP+5, FIO2-50%, orally intubated with 7.5 ETT~22cm at lip line. Airway care done, pt responded to physical stimuli. ETT moved to the left. Resus. bag at bedside. Vent and alarms on and audible.
[2017-08-15] MEDS: NOREPINEPHRINE BITARTRATE 8 MG in IV DEXTROSE 5% 500 ML IV PRN (20:49)
[2017-08-16] VITALS (24 sets, daily range): BP systolic 92–146; BP diastolic 41–80
[2017-08-16] MEDS: BLOOD SUGAR DIAGNOSTIC 1 EACH STRIP VI SCH ×4 (00:24→17:23)
[2017-08-16 05:28] LABS: CARBON DIOXIDE 30 mmol/L (21-32); CHLORIDE 114 mmol/L (98-107); CREATININE 1.1 mg/dL (0.6-1.3); GLUCOSE 90 mg/dL (74-106); POTASSIUM 3.9 mmol/L (3.5-5.1); UREA NITROGEN, BLOOD 30 mg/dL (7-18)
[2017-08-16 05:34] LABS: BASOPHILS # (AUTO) 0.1 K/uL (0.0-8.0); BASOPHILS % (AUTO) 0.6 % (0.0-2.0); EOSINOPHILS # (AUTO) 0.5 K/uL (0.0-0.7); EOSINOPHILS % (AUTO) 2.9 % (0.0-7.0); HEMOGLOBIN 9.3 g/dL (10.9-14.3); LYMPHOCYTES % (AUTO) 12.8 % (20.5-51.5); MEAN CORPUSCULAR HGB CONC 33 g/dL (32.3-35.6); MEAN CORPUSCULAR VOLUME 87.4 fL (75.5-95.3); MONOCYTES # (AUTO) 1.6 K/uL (2.0-10.0); NEUTROPHILS # (AUTO) 11.7 K/uL (1.8-8.9); NEUTROPHILS % (AUTO) 73.7 % (38.5-71.5); PLATELET COUNT (AUTO) 149 K/uL (179-408); RED BLOOD CELL COUNT(AUTO) 3.21 MIL/uL (3.63-4.92); WHITE BLOOD COUNT (AUTO) 15.9 K/uL (3.8-11.8)
[2017-08-16] MEDS: METOCLOPRAMIDE HCL 10 MG/2 ML VIAL IV SCH ×3 (05:58→23:37)
[2017-08-16] MEDS: MEROPENEM 0.5 G in IV NORMAL SALINE 50 ML IV SCH ×2 (05:59→17:23)
[2017-08-16 06:24] LABS: BAND % (MANUAL) 10 % (0-10); EOSINOPHILS % (MANUAL) 2 % (0-8); LYMPHOCYTES % (MANUAL) 14 % (20-40); METAMYELOCYTES % 1 % (0-1); MONOCYTES % (MANUAL) 10 % (2-10); MYELOCYTES % 1 % (0-0); NEUTROPHILS % (MANUAL) 62 % (42-75)
--- NOTE | 2017-08-16 07:30 | NUR ---
Pt.sedated,no s/s of acute distress or pain noted.
[2017-08-16] MEDS: MULTIVIT, IRON, MIN NO. 8, FA TABLET GT SCH (08:54)
[2017-08-16] MEDS: Z GUARD REMEDY PASTE 57 GM TUBE TOP SCH ×2 (08:54→21:49)
[2017-08-16] MEDS: FAMOTIDINE 20 MG TABLET GT SCH (08:54)
[2017-08-16] MEDS: MICAFUNGIN SODIUM 100 MG in IV NORMAL SALINE 100 ML IV SCH (08:54)
[2017-08-16] MEDS: ZINC SULFATE 220 MG CAPSULE GT SCH (08:54)
[2017-08-16] MEDS: ASCORBIC ACID 250 MG TABLET PO SCH (08:54)
[2017-08-16] MEDS: SILVER SULFADIAZINE 1% CREAM 50 GM TP SCH ×2 (08:55→21:49)
[2017-08-16 10:01] LABS: *OCCULT BLOOD STOOL NEGATIVE (NEGATIVE)
--- NOTE | 2017-08-16 11:30 | NUR ---
Pt.was seen by with new orders.
[2017-08-16] MEDS: COLISTIMETHATE SODIUM 75 MG in IV DEXTROSE 5% 100 ML IV SCH (13:26)
[2017-08-16] MEDS: PROPOFOL 100 ML IV PRN (13:33)
[2017-08-16] MEDS: Z GUARD REMEDY PASTE 57 GM TUBE TOP PRN (17:23)
--- NOTE | 2017-08-16 18:30 | NUR ---
Pt.was seen by .,no changes in pt.condition.
--- NOTE | 2017-08-16 19:10 | NUR ---
PT RECEIVED ORALLY INTUBATED WITH A SIZE 7.5 ETT APPROXIMATELY 22 CM AT THE LIP. ETT SECURE WITH ANCHOR-FAST, WITH GOOD SKIN INTEGRITY. ON A TOLBERT VENT WITH SETTINGS OF A/C 14, VT 400, PEEP +5, AND 50% FIO2. PT IS TOLERATING VENT SETTINGS WELL, SHOWING NO SIGNS OF RESPIRATORY DISTRESS AT THIS TIME, PRN TX NOT GIVEN. SUCTIONED A LARGE AMOUNT OF WHITE AND YELLOW SECRETIONS. AMBU-BAG AT BEDSIDE, AND VENT PLUGGED INTO RED OUTLET. WILL CONTINUE TO MONITOR THROUGHOUT SHIFT.
--- NOTE | 2017-08-16 19:30 | NUR ---
intubated and on vent ac mode rate 14/tv400/peep5/fio2 50%tolerating vent settings . saturation 96% rr 26.oral care done and suction patient via mouth and via ett .on propofol ofr sedation .sedation vacation done when off sedation rr is high and patient breathing fast . continue with sedation. Addendum: 08/17/17 at 0314 by MIKEY KIRKLAND RN Amended: Links added. Addendum: 08/17/17 at 0316 by MIKEY KIRKLAND RN Amended: Links added. Addendum: 08/17/17 at 7 by MIKEY KIRKLAND RN Amended: Links added. Addendum: 08/17/17 at 9 by MIKEY KIRKLAND RN Amended: Links added.
--- NOTE | 2017-08-16 22:00 | NUR ---
no new skin breakdown noted . turned and reposition patient elevated upper and lower extremities with pillow back off loaded with pillows Addendum: 08/17/17 at 315 by MIKEY KIRKLAND RN Amended: Links added. Addendum: 08/17/17 at 316 by MIKEY KIRKLAND RN Amended: Links added. Addendum: 08/17/17 at 318 by MIKEY KIRKLAND RN Amended: Links added.
[2017-08-17] VITALS (24 sets, daily range): BP systolic 96–143; BP diastolic 44–74
--- NOTE | 2017-08-17 | NUR ---
wang continue monitor temp.see flow sheet . Addendum: 08/17/17 at 0317 by MIKEY KIRKLAND RN Amended: Links added. Addendum: 08/17/17 at 318 by MIKEY KIRKLAND RN Amended: Links added.
[2017-08-17] MEDS: PROPOFOL 100 ML IV PRN ×2 (00:06→08:10)
[2017-08-17] MEDS: BLOOD SUGAR DIAGNOSTIC 1 EACH STRIP VI SCH ×3 (00:11→13:06)
[2017-08-17] MEDS: IV NORMAL SALINE 250 ML IV PRN (03:34)
[2017-08-17] MEDS: METOCLOPRAMIDE HCL 10 MG/2 ML VIAL IV SCH (05:22)
[2017-08-17 05:24] LABS: CARBON DIOXIDE 28 mmol/L (21-32); CHLORIDE 117 mmol/L (98-107); CREATININE 1.1 mg/dL (0.6-1.3); GLUCOSE 104 mg/dL (74-106); MAGNESIUM 1.9 mg/dL (1.8-2.4); PHOSPHOROUS 4.6 mg/dL (2.5-4.9); POTASSIUM 3.3 mmol/L (3.5-5.1); UREA NITROGEN, BLOOD 26 mg/dL (7-18)
[2017-08-17 05:25] LABS: BASOPHILS # (AUTO) 0.1 K/uL (0.0-8.0); BASOPHILS % (AUTO) 0.9 % (0.0-2.0); EOSINOPHILS # (AUTO) 0.4 K/uL (0.0-0.7); EOSINOPHILS % (AUTO) 2.9 % (0.0-7.0); HEMATOCRIT 26.4 % (31.2-41.9); HEMOGLOBIN 8.9 g/dL (10.9-14.3); LYMPHOCYTES # (AUTO) 1.8 K/uL (20.0-40.0); LYMPHOCYTES % (AUTO) 11.9 % (20.5-51.5); MEAN CORPUSCULAR HEMOGLOBIN 29.7 uug (24.7-32.8); MEAN CORPUSCULAR HGB CONC 34 g/dL (32.3-35.6); MEAN CORPUSCULAR VOLUME 88.2 fL (75.5-95.3); MONOCYTES # (AUTO) 1.5 K/uL (2.0-10.0); MONOCYTES % (AUTO) 10.3 % (0.0-11.0); PLATELET COUNT (AUTO) 161 K/uL (179-408); WHITE BLOOD COUNT (AUTO) 14.8 K/uL (3.8-11.8)
[2017-08-17 06:24] LABS: BAND % (MANUAL) 3 % (0-10); EOSINOPHILS % (MANUAL) 2 % (0-8); LYMPHOCYTES % (MANUAL) 11 % (20-40); METAMYELOCYTES % 1 % (0-1); MONOCYTES % (MANUAL) 6 % (2-10); MYELOCYTES % 1 % (0-0); NEUTROPHILS % (MANUAL) 76 % (42-75)
--- NOTE | 2017-08-17 07:20 | NUR ---
Report received.Pt remains slightly sedated.Orally intubated.No s/s of pain,discomfort.No SOB noted.SR on monitor.Turned ,repositioned.
[2017-08-17] MEDS: Z GUARD REMEDY PASTE 57 GM TUBE TOP SCH (08:11)
[2017-08-17] MEDS: MULTIVIT, IRON, MIN NO. 8, FA TABLET GT SCH (08:13)
[2017-08-17] MEDS: ASCORBIC ACID 250 MG TABLET PO SCH (08:13)
[2017-08-17] MEDS: ZINC SULFATE 220 MG CAPSULE GT SCH (08:13)
[2017-08-17] MEDS: FAMOTIDINE 20 MG TABLET GT SCH (08:13)
[2017-08-17] MEDS: SILVER SULFADIAZINE 1% CREAM 50 GM TP SCH (08:15)
--- NOTE | 2017-08-17 10:00 | NUR ---
Seen,examined by RESISTOR TESTING MACHINE OPERATOR for .
[2017-08-17 10:36] LABS: ABG BASE EXCESS 2.1 mmol/L; ABG HCO3 26.6 mmol/L; ABG PCO2 40.9 mmHg (35.0-45.0); ABG PH 7.431 (7.350-7.450); ABG PO2 79.4 mmHg (75.0-100.0); ABG SITE RIGHT RADIAL; ABG TOTAL HEMOGLOBIN 7.8 G/dL (12.0-16.0); COHb 1.7 % (0.5-1.5); MetHb 0.7 % (0.0-1.5); VENT MODE VENT - A/C; VT, ABG 400 mL
[2017-08-17] MEDS ORDERED: MORPHINE SULFATE PF IV DRIP 250 MG in IV DEXTROSE 5% 240 ML IV PRN (13:45)
--- NOTE | 2017-08-17 13:47 | NUR ---
Bioethics Meeting Note: Patient has no family and all efforts to try to find family were exhausted by [facility] [employer] of [employer].This medical technical writer called Nicolás Matos [phone] with this medical technical writer present. He confirmed he had tried to establish if there was family for 3 weeks but none were found. Meeting held in [facility] conference room at 1330. Dr Galeano conferenced in and Dr Hastings was present with Aries Benavides SET DESIGNER, Nydia VEGAW, Penelope case checker, Hayley ARMANDOmanager regulatory and Elliot Steiner Design Inserter [employer] all in attendance. Dr Galeano and the physicians all agreed that patient has multi organ failure with an intracranial hemorrhage. Pt. has no chance of recovery. Meeting decision was to extubate the pt. and put her on a morphine drip for palliative care. Dr Hastings agreed to write orders for morphine drip. Elliot Steiner agreed to be at bedside when pt. was extubated.
--- NOTE | 2017-08-17 15:00 | NUR ---
Propofol gtt was D/c.Morphine gtt started at 2 mg/hrfor comfort care.Will continue to monitor.
--- NOTE | 2017-08-17 16:30 | NUR ---
Pt remains intubated.Morphine gtt up to 4mg/hr due to grimacing.Will continue to monitor.
--- NOTE | 2017-08-17 17:20 | NUR ---
Morphine gtt up to 6mg/hr.Pt turned,repositioned.Oral care provided.Will continue to monitor.
--- NOTE | 2017-08-17 18:01 | NUR ---
Routine ventilator checks done during the daytime. No changes made. Suctioned as needed. Oral care done.
[2017-08-17] MEDS ORDERED: MORPHINE SULFATE 4 MG/1 ML DISP.SYRIN IV PRN (18:30)
--- NOTE | 2017-08-17 18:41 | NUR ---
Spoke with to update on pt condition.Morphine gtt up to 8 mg/hr as ordered for discomfort.New orders received to extubate pt.waiting for Respiratory therapy.
--- NOTE | 2017-08-17 18:50 | NUR ---
PT EXTUBATED PER MD ORDER. TR RAY AT BEDSIDE. SUCTION ORALLY.
--- NOTE | 2017-08-17 18:58 | NUR ---
Pt is extubated.No s/s of distress.
[2017-08-18 00:01] VITALS: BP 89/36
[2017-08-18 01:00] VITALS: BP 75/36
[2017-08-18 02:00] VITALS: BP 0/0
--- NOTE | 2017-08-18 02:06 | NUR ---
Patient PRONOUNCE by Soledad Campo RN. [place] [facility] [place]
== END 2017-08-18 07:05 | disposition expired | DRG 853 ==
LOC: ER 05:23 → CCU 08:14 → TELE-TD 08-03 16:39 → CCU 08-04 00:10
PROVIDERS: ADMIT Internal Medicine; ATTEND Internal Medicine
PROC: 5A1955Z Respiratory Ventilation, Greater than 96 Consecutive Hours (ICD-10-PCS; principal; 2017-07-25)
PROC: 0BH18EZ Insertion of Endotracheal Airway into Trachea, Via Natural or Artificial Opening Endoscopic (ICD-10-PCS; 2017-07-25)
PROC: 02HV33Z Insertion of Infusion Device into Superior Vena Cava, Percutaneous Approach (ICD-10-PCS; 2017-07-25)
PROC: 0LDV0ZZ Extraction of Right Foot Tendon, Open Approach (ICD-10-PCS; 2017-07-27)
PROC: 0BH17EZ Insertion of Endotracheal Airway into Trachea, Via Natural or Artificial Opening (ICD-10-PCS; 2017-08-04)
PROC: 5A1955Z Respiratory Ventilation, Greater than 96 Consecutive Hours (ICD-10-PCS; 2017-08-04)
PROC: 30233N1 Transfusion of Nonautologous Red Blood Cells into Peripheral Vein, Percutaneous Approach (ICD-10-PCS; 2017-08-07)
DX: A41.50 Gram-negative sepsis, unspecified (principal); J69.0 Pneumonitis due to inhalation of food and vomit; J96.01 Acute respiratory failure with hypoxia; I21.A1 Myocardial infarction type 2; E43 Unspecified severe protein-calorie malnutrition; N17.0 Acute kidney failure with tubular necrosis; G93.41 Metabolic encephalopathy; D61.818 Other pancytopenia; B37.0 Candidal stomatitis; L89.613 Pressure ulcer of right heel, stage 3; L89.153 Pressure ulcer of sacral region, stage 3; I50.31 Acute diastolic (congestive) heart failure; R65.21 Severe sepsis with septic shock; N39.0 Urinary tract infection, site not specified; L03.115 Cellulitis of right lower limb; D68.59 Other primary thrombophilia; E87.0 Hyperosmolality and hypernatremia; Z68.1 Body mass index [BMI] 19.9 or less, adult; J98.11 Atelectasis; Z51.5 Encounter for palliative care; Z66 Do not resuscitate; G30.9 Alzheimer's disease, unspecified; R13.10 Dysphagia, unspecified; B86 Scabies; B96.20 Unspecified Escherichia coli [E. coli] as the cause of diseases classified elsewhere; Z16.12 Extended spectrum beta lactamase (ESBL) resistance; B96.4 Proteus (mirabilis) (morganii) as the cause of diseases classified elsewhere; B95.61 Methicillin susceptible Staphylococcus aureus infection as the cause of diseases classified elsewhere; Z74.09 Other reduced mobility; Z87.820 Personal history of traumatic brain injury; Z87.81 Personal history of (healed) traumatic fracture; E03.9 Hypothyroidism, unspecified; F02.80 Dementia in other diseases classified elsewhere, unspecified severity, without behavioral disturbance, psychotic disturbance, mood disturbance, and anxiety; E86.0 Dehydration; E78.5 Hyperlipidemia, unspecified; I11.0 Hypertensive heart disease with heart failure; B96.89 Other specified bacterial agents as the cause of diseases classified elsewhere; K21.9 Gastro-esophageal reflux disease without esophagitis; Z79.82 Long term (current) use of aspirin; Z79.899 Other long term (current) drug therapy; Z86.73 Personal history of transient ischemic attack (TIA), and cerebral infarction without residual deficits; Z91.81 History of falling; M47.815 Spondylosis without myelopathy or radiculopathy, thoracolumbar region; I70.0 Atherosclerosis of aorta; E83.51 Hypocalcemia; E87.6 Hypokalemia; E11.65 Type 2 diabetes mellitus with hyperglycemia
CPT/HCPCS: 36415; 36569; 36600; 70030-TC; 71010; 71045; 76770; 82746; 83550; 83605; 83735; 83970; 84100; 84132; 84155; 84156; 84165; 84300; 84443; 84478; 85025; 85730; 86850; 86900; 86901; 86920; 87040; 87070; 87077; 87086; 87400; 93005; 93307; 94002; 94003; 94640; 94660; A4217; A4663; J0330; J0692; J0770; J1644; J1815; J1940; J1956; J2185; J2248; J2250; J2270; J2274; J2370; J2543; J2765; J3370; J3480; J3490; J7030; J7040; J7050; J7060; J7070; P9016-BL; P9021; P9047; Q9967